=== PATIENT | female | born 1965 | race Caucasian/White ===

== ENCOUNTER 2016-10-05 02:20 | Emergency (ER) | payer BC ==
--- NOTE | 2016-10-05 04:14 | ER Document Report ---
[id number] Patient TRAVEL OUTSIDE OF THE [place] IN LAST 30 DAYS: No - HPI Patient complains to provider of: Pain Location: 4th Toe Associated symptoms: Other - See above - General Chief Complaint: Toe Injury Stated Complaint: TOE INJURY Notes: Patient is a 51 year old female who presents to the emergency department complaining of left 4th toe pain. Patient reports that she had stubbed the toe on her cement stair while running into her house 3 weeks ago. Patient states that she has taped the toe to the adjacent toes for support but it has not improved. Patient has not visited her PCP. PCP: Dr. Biswas (HILARIO MAHAJAN) - Related Data Allergies/Adverse Reactions: strawberry [[place]] Allergy (Severe, Verified 05/14/14 10:10) Anaphylaxis Past Medical History - General Information source: Patient - Social History Smoking Status: Unknown if Ever Smoked Family History: Reviewed & Not Pertinent Patient has suicidal ideation: No Patient has homicidal ideation: No - Past Medical History Cardiac Medical History: Reports: Hx Atrial Fibrillation, Hx Hypercholesterolemia Pulmonary Medical History: Reports: Hx Bronchitis - Chronic, Hx COPD Psychiatric Medical History: Reports: Hx Depression Past Surgical History: Reports: Hx Appendectomy, Hx Section, Hx Hysterectomy, Hx Orthopedic Surgery - left wrist - Immunizations Hx Diphtheria, Pertussis, Tetanus Vaccination: Yes - ukn Hx Pneumococcal Vaccination: 01/01/07 Review of Systems - Review of Systems Constitutional: No symptoms reported EENT: No symptoms reported Cardiovascular: No symptoms reported Respiratory: No symptoms reported Gastrointestinal: No symptoms reported Genitourinary: No symptoms reported Female Genitourinary: No symptoms reported Musculoskeletal: See HPI, Other - Left 4th toe pain Skin: No symptoms reported Hematologic/Lymphatic: No symptoms reported Neurological/Psychological: No symptoms reported -: Yes All other systems reviewed and negative Physical Exam - Vital signs Interpretation: Normal - General General appearance: Appears well, Alert - HEENT Head: Normocephalic, Atraumatic - Respiratory Respiratory status: No respiratory distress Chest status: Nontender Breath sounds: Normal Chest palpation: Normal - Cardiovascular Rhythm: Regular Heart sounds: Normal auscultation Murmur: No - Back Back: Normal, Nontender - Extremities General upper extremity: Normal inspection General lower extremity: Other - Mild swelling of left 4th toe with resolving ecchymosis at joint line. No swelling of left foot, ankle, or knee. Good pulses and good perfusion. No neuro deficits. - Neurological Neuro grossly intact: Yes Cognition: Normal Orientation: AAOx4 Berry Coma Scale Eye Opening: Spontaneous Aury Coma Scale Verbal: Oriented Aury Coma Scale Motor: Obeys Commands Aury Coma Scale Total: 15 Speech: Normal - Psychological Associated symptoms: Normal affect, Normal mood - Skin Skin Temperature: Warm Skin Moisture: Dry Skin Color: Normal Course - Re-evaluation Re-evalutation: 10/05/16 04:16 I personally performed the services described in the documentation, reviewed and edited the documentation which was dictated to my scribe in my presence, and it accurately records my words and actions. Patient presents emergency per with 3 weeks ago she was wearing her flip-flops and inverted repellents minute. She's been walking on it ever since that still painful didn't follow up with her primary care physician denies any other injuries. On examination the fourth toe is mildly swollen with mild bruising no open lesions full range of motion without tenderness. No pain tenderness swelling at the foot and ankle or proximal leg. Regular ahead and place her in a postop shoe. Tylenol Motrin for pain oblique fracture of the phalanx of the fourth toe. Follow-up primary care physician in 3-4 days and discussed reasons for ED return sooner (AUDRA JAMES) - Vital Signs Vital signs: Temp Pulse Resp BP Pulse Ox 98.0 F 95 18 136/88 H 99 10/05/16 04:31 10/05/16 04:31 10/05/16 04:31 10/05/16 04:31 10/05/16 04:31 Discharge - Discharge Clinical Impression: closed oblique fracture of proximal 4th Condition: Stable Disposition: HOME, SELF-CARE Additional Instructions: Fracture toe You have a fracture. The typical broken bone requires only protection and sufficient time for healing. "Setting" is necessary only if the bones are crooked or out of position. The physician will re-assess you periodically to make certain that the bone heals without complications. It's important that you follow the instructions given you. The initial treatment is immobilization, elevation of the injury, and cold packs. Not all fractures require a cast. Depending on the location and type of fracture, immobilization may consist of a splint, cast, sling, bulky dressing , or simply rest. The length of time required for healing depends on the location and type of fracture, and on the age of the patient. The treatment plan the physician has outlined for you is customized to your fracture and health condition. Call the doctor or return at once if pain becomes severe, or if severe swelling or numbness develop. Referrals: KEENAN BISWAS MD [Primary Care Provider] - Follow up in 3-5 days Scribe Documentation - Patric acting as scribe for :Amari James Written by Patric:: patric Sawyer, 10/05/16, [id number]
[2016-10-05 04:32] VITALS: BP 136/88
== END 2016-10-05 04:34 | disposition home or self-care (01) ==
LOC: ER 02:20
DX: S92.912A Unspecified fracture of left toe(s), initial encounter for closed fracture (principal); W22.8XXA Striking against or struck by other objects, initial encounter; I48.91 Unspecified atrial fibrillation; E78.00 Pure hypercholesterolemia, unspecified
CPT/HCPCS: 99283

== ENCOUNTER 2016-11-17 03:07 | Emergency (ER) | payer BC ==
[2016-11-17] MEDS ORDERED: PREDNISONE 20 MG TABLET PO ONE (04:53)
[2016-11-17] MEDS ORDERED: HYDROCODONE/ACETAMINOPHEN 5-325 MG TABLET PO ONE (04:53)
[2016-11-17] MEDS ORDERED: IPRATROPIUM/ALBUTEROL 0.5-2.5 MG/3 ML AMPUL NEB ONE (04:53)
--- NOTE | 2016-11-17 04:57 | ER Document Report ---
ED General - General Chief Complaint: Cough Stated Complaint: COUGH,HEADACHE Notes: Patient is a 51-year-old female that comes emergency department with chief complaint of cough, wheezing, sore throat, patient states symptoms started about 3 days ago. She denies fever. She states she has some congestion and is worn out. Patient has past medical history of tobacco abuse, COPD, has home inhalers, denies any other medical history. TRAVEL OUTSIDE OF THE [place] IN LAST 30 DAYS: No - Related Data Allergies/Adverse Reactions: strawberry [[place]] Allergy (Severe, Verified 05/14/14 10:10) Anaphylaxis Past Medical History - General Information source: Patient - Social History Smoking Status: Never Smoker Frequency of alcohol use: None Drug Abuse: None Lives with: Family Family History: Reviewed & Not Pertinent Patient has suicidal ideation: No Patient has homicidal ideation: No - Past Medical History Cardiac Medical History: Reports: Hx Atrial Fibrillation, Hx Hypercholesterolemia Pulmonary Medical History: Reports: Hx Bronchitis - Chronic, Hx COPD Renal/ Medical History: Denies: Hx Peritoneal Dialysis Psychiatric Medical History: Reports: Hx Depression Past Surgical History: Reports: Hx Appendectomy, Hx Section, Hx Hysterectomy, Hx Oral Surgery - tonsil, Hx Orthopedic Surgery - buzz carpal, lt fa xochilt, rt knee meniscus, rt elbow pinched nerve release - Immunizations Hx Diphtheria, Pertussis, Tetanus Vaccination: Yes - ukn Hx Pneumococcal Vaccination: 01/01/07 Review of Systems - Review of Systems Constitutional: No symptoms reported EENT: See HPI Cardiovascular: No symptoms reported Respiratory: See HPI Gastrointestinal: No symptoms reported Genitourinary: No symptoms reported Female Genitourinary: No symptoms reported Musculoskeletal: No symptoms reported Skin: No symptoms reported Hematologic/Lymphatic: No symptoms reported Neurological/Psychological: No symptoms reported Physical Exam - Vital signs Vitals: Temp Pulse Resp Pulse Ox 97.9 F 95 20 97 11/17/16 03:12 11/17/16 03:12 11/17/16 03:12 11/17/16 03:12 Interpretation: Normal - General General appearance: Alert, Anxious In distress: None - HEENT Head: Normocephalic, Atraumatic Eyes: Normal Conjunctiva: Normal Extraocular movements intact: Yes Eyelashes: Normal Pupils: PERRL Sinus: Maxillary - Tenderness bilaterally, mild Nasal: Other - Some nasal and sinus congestion Mouth/Lips: Normal Mucous membranes: Normal Pharynx: Erythema - Mildly erythematous pharynx. No: Tonsillar hypertrophy, Uvular edema, Potential airway comprom. Neck: Anterior cervical chain - Mild - Respiratory Respiratory status: No respiratory distress. No: Respiratory distress, Labored , Tachypnea Chest status: Nontender Breath sounds: Decreased air movement, Nonproductive cough - Occasional, Wheezing - Bilateral expiratory wheezes Chest palpation: Normal - Cardiovascular Rhythm: Regular. No: Tachycardia Heart sounds: Normal auscultation, S1 appreciated, S2 appreciated Murmur: No - Abdominal Inspection: Normal Distension: No distension Bowel sounds: Normal Tenderness: Nontender Organomegaly: No organomegaly - Back Back: Normal, Nontender - Extremities General upper extremity: Normal inspection, Nontender, Normal color, Normal ROM , Normal temperature General lower extremity: Normal inspection, Nontender, Normal color, Normal ROM , Normal temperature, Normal weight bearing. No: Chandrika's sign - Neurological Neuro grossly intact: Yes Cognition: Normal Orientation: AAOx4 Aury Coma Scale Eye Opening: Spontaneous [place] Coma Scale Verbal: Oriented Aury Coma Scale Motor: Obeys Commands [place] Coma Scale Total: 15 Speech: Normal Motor strength normal: LUE, RUE, LLE, RLE Sensory: Normal - Psychological Associated symptoms: Anxious - Skin Skin Temperature: Warm Skin Moisture: Dry Skin Color: Normal Course - Re-evaluation Re-evalutation: Patient had resolution of wheezing after DuoNeb treatment, patient given prednisone, symptomatic treatment, chest x-ray unremarkable, strep is negative, patient is much better appearing and smiling on examination on reexamination. Because of sinus tenderness patient will be covered with antibiotics which also cover her for pneumonia/bronchitis, will treat with prednisone, patient given refill on her albuterol nebulizer, discussed primary care follow-up, discussed return precautions, patient states understanding and agreement. - Vital Signs Vital signs: Temp Pulse Resp BP Pulse Ox 97.9 F 95 20 143/83 H 97 11/17/16 03:12 11/17/16 03:12 11/17/16 03:12 11/17/16 03:15 11/17/16 03:12 Discharge - Discharge Clinical Impression: Wheezing, Cough, Sinus pain Condition: Stable Disposition: HOME, SELF-CARE Additional Instructions: X-ray does not show any concerning antibiotics, strep test is negative. Take azithromycin antibiotic as directed for your sinuses and upper respiratory infection, take prednisone as directed, use albuterol, take Clinton if needed for pain and cough. Follow-up with primary care. Return to the emergency department for any concerning or worsening symptoms. Prescriptions: Albuterol Sulfate [Albuterol Sulfate 2.5mg/3 mL] 1 vial IH Q4 PRN #30 vial PRN Reason: Azithromycin [Zithromax 250 mg Tablet] 250 mg PO ASDIR PRN #6 tablet PRN Reason: Hydrocodone/Acetaminophen [[place] 5-325 mg Tablet] 1 - 2 tab PO ASDIR #15 tablet Prednisone 20 mg PO DAILY #15 tablet Forms: Return to Work Referrals: KEENAN BISWAS MD [Primary Care Provider] - Follow up as needed
[2016-11-17] MEDS ORDERED: HYDROCODONE/ACETAMINOPHEN 5-325 MG 6 TAB/DSPK PO PRN (05:53)
[2016-11-17 06:16] VITALS: BP 163/84
== END 2016-11-17 06:17 | disposition home or self-care (01) ==
LOC: ER 03:07
DX: J44.9 Chronic obstructive pulmonary disease, unspecified (principal); R05 Cough; J34.89 Other specified disorders of nose and nasal sinuses; J02.9 Acute pharyngitis, unspecified; R09.81 Nasal congestion; F41.9 Anxiety disorder, unspecified; Z87.892 Personal history of anaphylaxis; Z91.013 Allergy to seafood
CPT/HCPCS: 94640; 99283; 87070; 87880; 71020; J7512; J7620

== ENCOUNTER 2016-11-20 13:19 | Emergency (ER) | payer BC ==
--- NOTE | 2016-11-20 13:32 | ER Document Report ---
ED Medical Screen (RME) - General Stated Complaint: CONGESTION/COUGH Mode of Arrival: Ambulatory Information source: Patient Notes: Patient complains of voice hoarseness, chest congestion and cough for the past week. Patient was prescribed steroids and Z-Terrance and is almost finished with the medication. hx: COPD, rapid heart rate I have greeted and performed a rapid initial assessment of this patient. A comprehensive ED assessment and evaluation of the patient, analysis of test results and completion of the medical decision making process will be conducted by additional ED providers. TRAVEL OUTSIDE OF THE [place] IN LAST 30 DAYS: No - Related Data Allergies/Adverse Reactions: strawberry [[place]] Allergy (Severe, Verified 11/20/16 13:30) Anaphylaxis Past Medical History - Past Medical History Cardiac Medical History: Reports: Hx Atrial Fibrillation, Hx Hypercholesterolemia Pulmonary Medical History: Reports: Hx Bronchitis - Chronic, Hx COPD Renal/ Medical History: Denies: Hx Peritoneal Dialysis Psychiatric Medical History: Reports: Hx Depression Past Surgical History: Reports: Hx Appendectomy, Hx Section, Hx Hysterectomy, Hx Oral Surgery - tonsil, Hx Orthopedic Surgery - buzz carpal, lt fa xochilt, rt knee meniscus, rt elbow pinched nerve release - Immunizations Hx Diphtheria, Pertussis, Tetanus Vaccination: Yes - ukn Physical Exam - Respiratory Respiratory status: No respiratory distress Breath sounds: Nonproductive cough, Rhonchi, Wheezing
[2016-11-20 15:08] VITALS: BP 169/93
--- NOTE | 2016-11-20 15:38 | ER Document Report ---
ED Respiratory Problem - General Chief Complaint: Congestion Stated Complaint: CONGESTION/COUGH Mode of Arrival: Ambulatory Notes: Patient says that she "want my voice back". Patient is describing a hoarse voice starting today. She was seen here just 3 days ago for an upper respiratory infection along with coughing as well as some bronchospasm. She was treated with a Z-Terrance, prednisone pills, Percocet tablets, and nebulizer medications. She says she only has one day of medicines left and everything will be finished and she still has her cough and is still wheezing and now she' s developed hoarseness. In spite of all that, patient still is not stop smoking! TRAVEL OUTSIDE OF THE [place] IN LAST 30 DAYS: No - Related Data Allergies/Adverse Reactions: strawberry [[place]] Allergy (Severe, Verified 11/20/16 13:30) Anaphylaxis Past Medical History - General Information source: Patient - Social History Smoking Status: Current Every Day Smoker Cigarette use (# per day): Yes Chew tobacco use (# tins/day): No Frequency of alcohol use: None Drug Abuse: None Family History: Reviewed & Not Pertinent Patient has suicidal ideation: No Patient has homicidal ideation: No - Past Medical History Cardiac Medical History: Reports: Hx Atrial Fibrillation, Hx Hypercholesterolemia Pulmonary Medical History: Reports: Hx Bronchitis - Chronic, Hx COPD Psychiatric Medical History: Reports: Hx Depression Past Surgical History: Reports: Hx Appendectomy, Hx Section, Hx Hysterectomy, Hx Oral Surgery - tonsil, Hx Orthopedic Surgery - buzz carpal, lt fa xochilt, rt knee meniscus, rt elbow pinched nerve release - Immunizations Hx Diphtheria, Pertussis, Tetanus Vaccination: Yes - ukn Hx Pneumococcal Vaccination: 01/01/07 Review of Systems - Review of Systems Notes: REVIEW OF SYSTEMS: CONSTITUTIONAL : Denies fever. EENT: Denies eye, ear, nose or mouth pain or other symptoms except for hoarseness of her voice. CARDIOVASCULAR: Denies chest pain. RESPIRATORY: See history of present illness. GASTROINTESTINAL: Denies abdominal pain or nausea, vomiting, or diarrhea. GENITOURINARY: Denies difficulty or painful urinating, urinary frequency, blood in urine. MUSCULOSKELETAL: Denies back or neck pain. Denies joint pain or swelling. SKIN: Denies rash or skin lesions. NEUROLOGICAL: Denies LOC or altered mental status. Denies headache. Denies sensory loss or motor deficits. ALL OTHER SYSTEMS REVIEWED AND NEGATIVE. Physical Exam - Vital signs Vitals: Temp Pulse Resp BP Pulse Ox 98.0 F 114 H 17 169/93 H 96 11/20/16 13:32 11/20/16 13:32 11/20/16 13:32 11/20/16 13:32 11/20/16 13:32 Interpretation: Normal, Tachycardic - Minimal - Notes Notes: PHYSICAL EXAMINATION: GENERAL: Well-appearing, in no acute distress. Anxious. All vital signs normal. HEAD: Atraumatic, normocephalic. EYES: Pupils equal round and reactive to light, extraocular movements intact. ENT: oropharynx clear except for some mild, inconsequential erythema of the posterior oropharynx, but without exudates. Moist mucous membranes. Voice is slightly hoarse sounding. NECK: Normal range of motion, supple. LUNGS: Breath sounds clear and equal bilaterally. HEART: Regular rate and rhythm without murmurs. ABDOMEN: Soft, nontender. No guarding or rebound. BACK: No tenderness throughout entire back. EXTREMITIES: Normal range of motion without pain. NEUROLOGICAL: Normal speech, normal gait. Normal sensory, motor, and reflex exams. Awake, alert, and oriented x3. Cranial nerves normal. PSYCH: Normal mood, normal affect. SKIN: Warm, dry, no rashes. Course - Vital Signs Vital signs: Temp Pulse Resp BP Pulse Ox 98.0 F 114 H 17 169/93 H 96 11/20/16 13:32 11/20/16 13:32 11/20/16 13:32 11/20/16 13:32 11/20/16 13:32 - Diagnostic Test Radiology results interpreted by me: 11/20/16 20:46 Chest x-ray is normal. Discharge - Discharge Clinical Impression: Hoarseness of voice, Cough, Laryngitis Upper respiratory infection Qualifiers: URI type: unspecified URI Qualified Code(s): J06.9 - Acute upper respiratory infection, unspecified Condition: Stable Disposition: HOME, SELF-CARE Additional Instructions: UPPER RESPIRATORY ILLNESS: You have a viral infection of the respiratory passages -- a "cold." This common infection causes nasal congestion, drainage, and often sore throat and cough. It is highly contagious. The disease usually lasts about 10 to 14 days. There is no "cure" for the viral infection -- it must run its course. If there is a complication, such as bacterial infection in the nose, sinuses, middle ear, or bronchial tubes, antibiotics may be required. The antibiotics won't affect the virus. Drink plenty of fluids. A humidifier may help. An expectorant medication or decongestant may make you more comfortable. Use acetaminophen or ibuprofen for fever or aches. See the doctor if fever persists over two days, if there is any significant worsening of your symptoms, or if you simply fail to improve as expected. BRONCHOSPASM: You have tightness in the bronchial tubes, called bronchospasm. This often occurs with bronchial infections. Allergies, inhaled chemicals, and polluted or cold air can also provoke bronchospasm. It's more likely in patients with asthma in the family. Emergency treatment of bronchospasm may include adrenaline shots or bronchodilator aerosol. You may feel lightheaded and have a rapid pulse for an hour or two. Rest and get plenty of fluids. At home, we'll treat you with a bronchodilator inhaler. Antibiotics and corticosteroids may be required for some patients. Until you recover, avoid chemical fumes, dusts, pollens, and exercising in very cold or dry air. If you smoke, stop now!! If you develop a fever, increased wheezing, chest pain, or severe shortness of breath, you should contact the doctor immediately. COUGH-SUPPRESSANT & EXPECTORANT MEDICATION: You are to use a cough medication as needed for relief of symptoms. This medicine is a combination of an expectorant (to make the mucous thinner and more easily "coughed up") and a cough suppressant (to reduce the frequency of coughing). The cough-suppressant medicine is related to narcotics. You may experience mild nausea and sleepiness. Some patients who are very sensitive to narcotics may have stomach pain from this medicine. Taking the medicine with food reduces these side effects. Do not drive or work with machinery until you know how this medicine affects you. The expectorant should have no side effects. Iodine-containing expectorants (such as organidin) should not be taken by persons with active thyroid disease unless approved by your doctor. Call the doctor if you develop shortness of breath, hives, rash, itching, lightheadedness, or severe nausea and vomiting. Oral Narcotic Medication You have been given a prescription for pain control. This medication is a narcotic. It's best taken with food, as nausea can result if taken on an empty stomach. Don't operate machinery or drive within six hours of taking this medication. Do not combine this medicine with alcohol, or with any medication which can cause sedation (such as cold tablets or sleeping pills) unless you get permission from the physician. Narcotics tend to cause constipation. If possible, drink plenty of fluids and eat a diet high in fiber and fruits. INHALED BRONCHODILATORS: You have received a treatment of and/or prescription for an inhaled bronchodilator -- a medication which stimulates the airways in the lung to dilate. This improves the flow of air in asthma, bronchitis, and emphysema. These medicines have some similarity to adrenaline, and can cause similar side effects: shakiness, racing heart, and a sense of nervousness. These side effects decrease with time. Contact your doctor if these side effects are severe. Do not over-use the medicine. Too-frequent use of the inhaler may make it ineffective. Call your doctor if the inhaler is not controlling your symptoms at the prescribed doses. STEROID MEDICATION: You have been given an injection of or oral medicine of the cortisone/ steroid class. This medication is used to control inflammation or allergy. Andrea t is usually only given for a short period of time, until the acute process subsides. There are usually no side effects from short-term use of cortisone-like medications. Some persons feel an increased sense of well-being and are not sleepy at bedtime. Long-term use of cortisone medications is best avoided, unless required for a severe condition. If your condition does not remit, or relapses after the course of corticosteroid medication, you should consult your physician. Laryngitis You have laryngitis. This is an inflammation of the vocal cords which leads to inability to speak normally. Any irritation to the airway can cause laryngitis. Causes include virus infection, smoke inhalation, allergy, or even trauma due to excessive talking or shouting. Rest your voice. Any vibration of the vocal cords increases and prolongs the swelling. Humidity is helpful, especially cool mist. Avoid dust, chemical fumes, and smoke. Avoid decongestants and antihistamines -- these will make you worse. You can expect to recover completely in a few days. See the physician if new symptoms develop, such as high fever, productive cough, shortness of breath, or if you do not improve within a few days. SMOKING: If you smoke, you should stop smoking. The tar and chemicals in cigarette smoke are harmful. Smoking has been shown to cause: emphysema chronic bronchitis lung cancer mouth and throat cancer stomach and pancreas cancer premature aging defects In addition, smoking increases ear and lung infections in children of smokers. It would probably be very helpful if you get a steam vaporizer and put it in your bedroom and let it run continuously over the next week or so. Decrease or stop smoking. Continue your medications until they're finished. They do not need to be refilled for further treatment. FOLLOW-UP CARE: If you have been referred to a physician for follow-up care, call the physician s office for an appointment as you were instructed or within the next two days. If you experience worsening or a significant change in your symptoms, notify the physician immediately or return to the Emergency Department at any time for re-evaluation. Prescriptions: Oxycodone HCl/Acetaminophen [Percocet 5-325 mg Tablet] 1 - 2 tab PO Q4H PRN #15 tablet PRN Reason: Forms: Return to Work, Smoking Cessation Education
== END 2016-11-20 15:50 | disposition home or self-care (01) ==
LOC: ER 13:19
DX: J04.0 Acute laryngitis (principal); J06.9 Acute upper respiratory infection, unspecified; R49.0 Dysphonia; R05 Cough; R09.81 Nasal congestion; F17.210 Nicotine dependence, cigarettes, uncomplicated; Z79.899 Other long term (current) drug therapy
CPT/HCPCS: 71020; 99283

== ENCOUNTER 2017-01-19 17:49 | Emergency (ER) | payer BC ==
[2017-01-19 18:16] VITALS: BP 137/81
[2017-01-19] MEDS ORDERED: OXYCODONE-ACETAMINOPHEN 5-325 MG TABLET PO ONE (20:10)
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
[2017-01-19] MEDS ORDERED: HYDROCODONE/ACETAMINOPHEN 5-325 MG 6 TAB/DSPK PO PRN (20:32)
== END 2017-01-19 20:44 | disposition home or self-care (01) ==
LOC: ER 17:49
DX: S92.511A Displaced fracture of proximal phalanx of right lesser toe(s), initial encounter for closed fracture (principal); M79.671 Pain in right foot; W20.8XXA Other cause of strike by thrown, projected or falling object, initial encounter; Y92.512 Supermarket, store or market as the place of occurrence of the external cause; F17.210 Nicotine dependence, cigarettes, uncomplicated; J44.9 Chronic obstructive pulmonary disease, unspecified; R03.0 Elevated blood-pressure reading, without diagnosis of hypertension
CPT/HCPCS: 99283

== ENCOUNTER 2017-06-12 12:15 | Emergency (ER) | payer SELFPAY ==
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
--- NOTE | 2017-06-12 14:15 | RADIOLOGY REPORT (SQ) ---
EXAM DESCRIPTION: FINGER LEFT COMPLETED DATE/TIME: 06/12/2017 1:54 pm REASON FOR STUDY: 5th finger injury COMPARISON: None. NUMBER OF VIEWS: Three views. TECHNIQUE: AP, lateral, and oblique images acquired of the left fifth finger. LIMITATIONS: None. FINDINGS: MINERALIZATION: Osteopenia. BONES: There is a fracture of the distal aspect of the 5th middle phalanx that extends obliquely to t he midportion of the articular surface. There is no significant displacement. SOFT TISSUES: No soft tissue swelling. No foreign body. OTHER: No other significant finding. IMPRESSION: Fracture of the 5th middle phalanx. COMMENT: SITE OF TRAUMA/COMPLAINT MARKED/STAMP COMPLETED: Yes TECHNICAL DOCUMENTATION: JOB ID: [id number] [employer]- All Rights Reserved
--- NOTE | 2017-06-12 14:17 | RADIOLOGY REPORT (SQ) ---
EXAM DESCRIPTION: TOE RIGHT COMPLETED DATE/TIME: 06/12/2017 1:54 pm REASON FOR STUDY: 5th toe injury COMPARISON: None. NUMBER OF VIEWS: Three views. TECHNIQUE: AP, lateral, and oblique images acquired of the right fourth toe. LIMITATIONS: None. FINDINGS: MINERALIZATION: Osteopenia BONES: No acute fracture or dislocation. No worrisome bone lesions. JOINTS: No effusions. SOFT TISSUES: No soft tissue swelling. No foreign body. OTHER: No other significant finding. IMPRESSION: NEGATIVE STUDY OF THE RIGHT TOE. NO RADIOGRAPHIC EVIDENCE OF ACUTE INJURY. COMMENT: SITE OF TRAUMA/COMPLAINT MARKED/STAMP COMPLETED: Yes TECHNICAL DOCUMENTATION: JOB ID: [id number] [employer]- All Rights Reserved
[2017-06-12] MEDS ORDERED: IBUPROFEN 800 MG TABLET PO ONE (14:27)
[2017-06-12 14:54] VITALS: BP 140/70
== END 2017-06-12 14:55 | disposition home or self-care (01) ==
LOC: ER 12:15
DX: S62.607A Fracture of unspecified phalanx of left little finger, initial encounter for closed fracture (principal); S90.121A Contusion of right lesser toe(s) without damage to nail, initial encounter; F17.210 Nicotine dependence, cigarettes, uncomplicated; Y09 Assault by unspecified means
CPT/HCPCS: 99283

== ENCOUNTER 2017-11-16 10:33 | Emergency (ER) | payer OTHER ==
--- NOTE | 2017-11-16 11:40 | ER Document Report ---
HPI - HPI Pain Level: 3 Notes: Patient is a 52-year-old female who presents to the ED complaining of nasal congestion/discharge, dry nonproductive cough, fever, body ache 2 days. Patient states that she is still eating and drinking without difficulties, but does have a decreased p.o. intake. She is still urinating normally having normal bowel movements. Patient has been using some [id number] meds for symptoms. Pt does have a h/o COPD, stable w/o need for daily inhaler currently. She denies any other significant past medical history including cardiopulmonary history and immunocompromised conditions. Patient denies any IV drug use. Patient requesting work note. Denies any current headache, neck pain, sore throat, chest pain, palpitations, syncope, shortness of breath, wheeze, dyspnea, abdominal pain, nausea/vomiting/diarrhea, urinary retention, dysuria, hematuria, or rash. Pt does not have any flank pain as noted in pivot. Pt states it is a body ache. - ROS Systems Reviewed and Negative: Yes All other systems reviewed and negative - REPRODUCTIVE Reproductive: DENIES: : Past Medical History - Social History Smoking Status: Unknown if Ever Smoked Family History: DM, Hyperlipidemia, Malignancy - Past Medical History Cardiac Medical History: Reports: Hx Atrial Fibrillation, Hx Hypercholesterolemia Pulmonary Medical History: Reports: Hx Bronchitis - Chronic, Hx COPD Renal/ Medical History: Denies: Hx Peritoneal Dialysis Musculoskeltal Medical History: Reports Hx Arthritis, Reports Hx Musculoskeletal Deformity, Reports Hx Musculoskeletal Trauma Psychiatric Medical History: Reports: Hx Depression Traumatic Medical History: Reports: Hx Fractures - Toe elbow ribs clavicle ulnar radius ankle nose and hand Past Surgical History: Reports: Hx Appendectomy, Hx Section, Hx Hysterectomy, Hx Oral Surgery - tonsil, Hx Orthopedic Surgery - buzz carpal, lt fa xochilt, rt knee meniscus, rt elbow pinched nerve release, Hx Tonsillectomy - Immunizations Immunizations up to date: Yes Hx Diphtheria, Pertussis, Tetanus Vaccination: Yes - ukn Hx Pneumococcal Vaccination: 01/01/07 Vertical Provider Document - CONSTITUTIONAL Agree With Documented VS: Yes Notes: PHYSICAL EXAMINATION: GENERAL: Well-appearing, well-nourished and in no acute distress. A&Ox4. Answers questions appropriately. Moves comfortably w/o notable distress HEAD: Atraumatic, normocephalic. EYES: Pupils equal round and reactive to light, extraocular movements intact, sclera anicteric, conjunctiva are normal. ENT: EAC clear b/l. TM's intact b/l without erythema, fluid, or perforation. Nares patent and with clear discharge. oropharynx no erythema without exudates. No tonsilar hypertrophy without erythema or exudate. No palatine shift. Uvula midline. No tongue protrusion. No drooling, hoarseness, or airway compromise. Moist mucous membranes. No sinus tenderness. NECK: Normal range of motion, supple without lymphadenopathy. No rigidity/ meningismus. LUNGS: Breath sounds clear to auscultation bilaterally and equal. No wheezes rales or rhonchi. No retractions HEART: Regular rate and rhythm without murmurs, rubs, gallops. ABDOMEN: Soft, nontender, nondistended abdomen. No guarding, no rebound. No masses appreciated. Normal bowel sounds present. No CVA tenderness bilaterally. No hepatosplenomegaly. NEUROLOGICAL: Normal speech, normal gait. Normal sensory, motor exams PSYCH: Normal mood, normal affect. SKIN: Warm, Dry, normal turgor, no rashes or lesions noted. - INFECTION CONTROL TRAVEL OUTSIDE OF THE [place] IN LAST 30 DAYS: No - RESPIRATORY O2 Sat by Pulse Oximetry: 96 Course - Re-evaluation Re-evalutation: 11/16/17 11:38 Patient is an afebrile, well-hydrated, 52-year-old female who presents to the ED with acute URI, suspect influenza. Vitals are stable. PE is otherwise unremarkable. No labs or imaging warranted at this time based on H&P. Pt does have a h/o COPD. Patient's lungs are clear to auscultation bilaterally without significant tachycardia, hypoxia, or tachypnea. Patient is tolerating p.o. without any difficulties. Thoroughly reviewed the risks, benefits, potential side effects, estimated cost without insurance with patient. After thorough review, patient declined Tamiflu at this time. Low suspicion for any meningitis , sepsis, peritonsillar/pharyngeal abscess, respiratory compromise, severe dehydration, or other emergent systemic condition at this time. Patient is aware this condition can change from initial presentation and she needs to monitor symptoms closely. Conservative measures otherwise for symptoms. Recheck with your PCM in 3-5 days. Return to the ED with any worsening/ concerning symptoms otherwise as reviewed in discharge. Patient is in agreement. - Vital Signs Vital signs: Temp Pulse Resp BP Pulse Ox 98.1 F 101 H 16 148/85 H 96 11/16/17 10:56 11/16/17 10:56 11/16/17 10:56 11/16/17 10:56 11/16/17 10:56 Discharge - Discharge Clinical Impression: Influenza, Acute URI Condition: Stable Disposition: HOME, SELF-CARE Instructions: Upper Respiratory Illness ([facility]), Influenza ([facility]) Additional Instructions: Maintain adequate fluid intake Take meds as directed tylenol/ibuprofen as needed over the counter cold medication as needed for symptoms Humidified air may help Wash your hands regularly Wear a mask when coughing F/u: with your PCM in 3-5 days for a recheck Return to the ED with any fever, worsening pain, chest pain, palpitations, syncope, worsening DIAS, neck pain/stiffness, shortness of breath, wheezing, drooling, trouble swallowing/breathing, abdominal pain, n/v/d, rash, or worsening/concerning symptoms otherwise. Forms: Elevated Blood Pressure Referrals: [facility] [Provider Group] - Follow up as needed [facility] [Provider Group] - Follow up as needed
[2017-11-16 12:15] VITALS: BP 147/86
== END 2017-11-16 12:14 | disposition home or self-care (01) ==
LOC: ER 10:33
DX: J11.1 Influenza due to unidentified influenza virus with other respiratory manifestations (principal); R05 Cough; R50.9 Fever, unspecified; R52 Pain, unspecified; J44.9 Chronic obstructive pulmonary disease, unspecified; J34.89 Other specified disorders of nose and nasal sinuses
CPT/HCPCS: 99284

== ENCOUNTER 2018-03-11 16:44 | Emergency (ER) | payer OTHER ==
--- NOTE | 2018-03-11 17:05 | ER Document Report ---
HPI - HPI Pain Level: 4 - REPRODUCTIVE Reproductive: DENIES: : Past Medical History - Social History Family History: DM, Hyperlipidemia, Malignancy - Past Medical History Cardiac Medical History: Reports: Hx Atrial Fibrillation, Hx Hypercholesterolemia Pulmonary Medical History: Reports: Hx Bronchitis - Chronic, Hx COPD Renal/ Medical History: Denies: Hx Peritoneal Dialysis Musculoskeltal Medical History: Reports Hx Arthritis, Reports Hx Musculoskeletal Deformity, Reports Hx Musculoskeletal Trauma Psychiatric Medical History: Reports: Hx Depression Traumatic Medical History: Reports: Hx Fractures - Toe elbow ribs clavicle ulnar radius ankle nose and hand Past Surgical History: Reports: Hx Appendectomy, Hx Section, Hx Hysterectomy, Hx Oral Surgery - tonsil, Hx Orthopedic Surgery - buzz carpal, lt fa xochilt, rt knee meniscus, rt elbow pinched nerve release, Hx Tonsillectomy - Immunizations Immunizations up to date: Yes Hx Diphtheria, Pertussis, Tetanus Vaccination: Yes - ukn Hx Pneumococcal Vaccination: 01/01/07 Vertical Provider Document - INFECTION CONTROL TRAVEL OUTSIDE OF THE [place] IN LAST 30 DAYS: No Course - Vital Signs Vital signs: Temp Pulse Resp BP Pulse Ox 98.2 F 110 H 20 147/80 H 95 03/11/18 16:55 03/11/18 16:55 03/11/18 16:55 03/11/18 16:55 03/11/18 16:55
--- NOTE | 2018-03-11 17:28 | RADIOLOGY REPORT (SQ) ---
EXAM DESCRIPTION: KNEE LEFT 4 VIEW COMPLETED DATE/TIME: 03/11/2018 5:09 pm REASON FOR STUDY: Pain s/p fall COMPARISON: None. NUMBER OF VIEWS: Four views. TECHNIQUE: AP, lateral, and both oblique radiographic images acquired of the left knee. LIMITATIONS: None. FINDINGS: No acute fracture or bony abnormality identified. IMPRESSION: NORMAL LEFT KNEE. TECHNICAL DOCUMENTATION: JOB ID: [id number] [place]-69 2010 [employer]- All Rights Reserved Reading location - IP/workstation name: [email or web address]
[2018-03-11] MEDS ORDERED: ASPIRIN 81 MG TABLET, CHEWABLE PO ONE (17:32)
--- NOTE | 2018-03-11 17:50 | ER Document Report ---
ED Medical Screen (RME) - General Chief Complaint: Knee Injury Stated Complaint: LEFT KNEE PAIN Time Seen by Provider: 03/11/18 17:04 Mode of Arrival: Ambulatory Information source: Patient Notes: 52-year-old female was walking on the sidewalk to enter her daughter's graduation Monday and the next thing she remembers she was twisting her back. She does not remember falling. There was no pre-syncopal symptoms. She was dazed and had to get her bearings, she did not realize where she was. No history of seizures. The rest of Monday after this episode she felt very fatigued and tired which was unusual. She does state that she has had some intermittent chest pain recently but not during or after this episode. She is a tachycardic patient and supposed to take atenolol which she has not been taking for a month. 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 Her left knee is painful with an abrasion on it. Tetanus is not current. I discussed this case with Dr. Lopez who also agrees that she needs to be evaluated for the syncopal episode on Monday. She agrees to this workup. TRAVEL OUTSIDE OF THE [place] IN LAST 30 DAYS: No - Related Data Allergies/Adverse Reactions: strawberry [[place]] Allergy (Severe, Verified 06/12/17 12:23) Anaphylaxis Past Medical History - Past Medical History Cardiac Medical History: Reports: Hx Atrial Fibrillation, Hx Hypercholesterolemia Pulmonary Medical History: Reports: Hx Bronchitis - Chronic, Hx COPD Renal/ Medical History: Denies: Hx Peritoneal Dialysis Musculoskeltal Medical History: Reports Hx Arthritis, Reports Hx Musculoskeletal Deformity, Reports Hx Musculoskeletal Trauma Psychiatric Medical History: Reports: Hx Depression Traumatic Medical History: Reports: Hx Fractures - Toe elbow ribs clavicle ulnar radius ankle nose and hand Past Surgical History: Reports: Hx Appendectomy, Hx Section, Hx Hysterectomy, Hx Oral Surgery - tonsil, Hx Orthopedic Surgery - buzz carpal, lt fa xochilt, rt knee meniscus, rt elbow pinched nerve release, Hx Tonsillectomy - Immunizations Immunizations up to date: Yes Hx Diphtheria, Pertussis, Tetanus Vaccination: Yes - [facility] Physical Exam - Vital signs Vitals: Temp Pulse Resp BP Pulse Ox 98.2 F 110 H 20 147/80 H 95 03/11/18 16:55 03/11/18 16:55 03/11/18 16:55 03/11/18 16:55 03/11/18 16:55 Course - Vital Signs Vital signs: Temp Pulse Resp BP Pulse Ox 98.2 F 110 H 20 147/80 H 95 03/11/18 16:55 03/11/18 16:55 03/11/18 16:55 03/11/18 16:55 03/11/18 16:55
[2018-03-11] MEDS ORDERED: IBUPROFEN 400 MG TABLET PO ONE (17:52)
[2018-03-11] MEDS ORDERED: IBUPROFEN 600 MG TABLET PO ONE (17:52)
[2018-03-11 17:57] LABS: ABSOLUTE BASOPHILS # (AUTO) 0.1 10^3/uL (0.0-0.2); ABSOLUTE EOSINOPHILS # (AUTO) 0.1 10^3/uL (0.0-0.6); ABSOLUTE LYMPHOCYTES (AUTO) 2.2 10^3/uL (0.5-4.7); ABSOLUTE MONOCYTES (AUTO) 0.8 10^3/uL (0.1-1.4); ABSOLUTE NEUT (AUTO) 5.4 10^3/uL (1.7-8.2); EOSINOPHILS % (AUTO) 1.2 % (0-6); HEMATOCRIT 40.8 % (36.0-47.0); HEMOGLOBIN 14.1 g/dL (12.0-15.5); LYMPHOCYTES % (AUTO) 25.7 % (13-45); MEAN CORPUSCULAR HEMOGLOBIN 33.1 pg (27.0-33.4); MEAN CORPUSCULAR HGB CONC 34.6 g/dL (32.0-36.0); MEAN CORPUSCULAR VOLUME 96 fl (80-97); MONOCYTES % (AUTO) 8.9 % (3-13); PLATELET COUNT 289 10^3/uL (150-450); RED BLOOD COUNT 4.26 10^6/uL (3.72-5.28); RED CELL DISTRIBUTION WIDTH 13.7 % (11.5-14.0); SEGMENTED NEUTROPHILS % (AUTO) 63.2 % (42-78); TOTAL CELLS COUNTED % (AUTO) 100 %; WHITE BLOOD COUNT 8.5 10^3/uL (4.0-10.5)
[2018-03-11] MEDS ORDERED: DIPH/PERTUSS(ACELL)/TETANUS VAC/PF 0.5 ML SYR (>=10YO) IM ONE (17:59)
--- NOTE | 2018-03-11 18:13 | RADIOLOGY REPORT (SQ) ---
EXAM DESCRIPTION: CHEST SINGLE VIEW COMPLETED DATE/TIME: 03/11/2018 5:53 pm REASON FOR STUDY: episode of syncope on Monday COMPARISON: Chest x-ray 11/20/2016. EXAM PARAMETERS: NUMBER OF VIEWS: One view. TECHNIQUE: Single frontal radiographic view of the chest acquired. RADIATION DOSE: NA LIMITATIONS: None. FINDINGS: LUNGS AND PLEURA: No consolidation, pneumothorax or pleural effusion. MEDIASTINUM AND HILAR STRUCTURES: No masses. Contour normal. HEART AND VASCULAR STRUCTURES: Heart normal in size. Normal vasculature. BONES: No acute findings. HARDWARE: None in the chest. IMPRESSION: No acute radiographic finding in the chest. TECHNICAL DOCUMENTATION: JOB ID: [id number] [place]-64 2010 [employer]- All Rights Reserved Reading location - IP/workstation name: [email or web address]
[2018-03-11 18:15] LABS: ALANINE AMINOTRANSFERASE 23 U/L (9-52); ALBUMIN 4.1 g/dL (3.5-5.0); ALKALINE PHOSPHATASE 87 U/L (38-126); ANION GAP 12 (5-19); ASPARTATE AMINO TRANSFERASE 19 U/L (14-36); BILIRUBIN,DIRECT 0.3 mg/dL (0.0-0.4); BILIRUBIN,TOTAL 0.3 mg/dL (0.2-1.3); BLOOD UREA NITROGEN 14 mg/dL (7-20); CALCIUM 9.5 mg/dL (8.4-10.2); CARBON DIOXIDE 26 mmol/L (22-30); CHLORIDE 106 mmol/L (98-107); CREATINE KINASE 80 U/L (30-135); GLUCOSE 100 mg/dL (75-110); POTASSIUM 4.1 mmol/L (3.6-5.0)
[2018-03-11 18:34] LABS: TROPONIN I < 0.012 ng/mL
[2018-03-11] MEDS ORDERED: METOPROLOL TARTRATE 25 MG TABLET PO ONE (20:20)
[2018-03-11] MEDS ORDERED: ACETAMINOPHEN 325 MG TABLET PO ONE (20:20)
--- NOTE | 2018-03-11 20:26 | ER Document Report ---
ED General - General Chief Complaint: Knee Injury Stated Complaint: LEFT KNEE PAIN Time Seen by Provider: 03/11/18 17:04 Mode of Arrival: Ambulatory Notes: The patient is a 52-year-old female with a past medical history of sinus tachycardia although is currently off of her beta-lou who presents after having a syncopal episode 2 days prior to arrival falling and landing on her left knee. The patient states that she had some mild lightheadedness prior to the episode of syncope but the next thing she knew she was falling to the ground. She states that she initially felt okay after the fall with only mild pain to the left knee. He does note however that since that time the knee pain has become progressively worse and is now constant, severe, throbbing pain. Any movement of the knee or walking worsens the pain. She has tried ibuprofen with minimal improvement of the pain. No history of similar injury in the past. She states that she has not had any recurrence of syncope since the initial event 2 days ago. She denies any chest pain or shortness of breath. The only reason she came to the emergency department today was for the knee pain and she states that she is not concerned about the syncopal episode. She has not seen her primary care doctor regarding today's concerns. TRAVEL OUTSIDE OF THE [place] IN LAST 30 DAYS: No - Related Data Allergies/Adverse Reactions: strawberry [[place]] Allergy (Severe, Verified 06/12/17 12:23) Anaphylaxis Past Medical History - General Information source: Patient - Social History Smoking Status: Never Smoker Frequency of alcohol use: None Drug Abuse: None Lives with: Spouse/Significant other Family History: DM, Hyperlipidemia, Malignancy Patient has suicidal ideation: No Patient has homicidal ideation: No - Past Medical History Cardiac Medical History: Reports: Hx Atrial Fibrillation, Hx Hypercholesterolemia Pulmonary Medical History: Reports: Hx Bronchitis - Chronic, Hx COPD Renal/ Medical History: Denies: Hx Peritoneal Dialysis Musculoskeltal Medical History: Reports Hx Arthritis, Reports Hx Musculoskeletal Deformity, Reports Hx Musculoskeletal Trauma Psychiatric Medical History: Reports: Hx Depression Traumatic Medical History: Reports: Hx Fractures - Toe elbow ribs clavicle ulnar radius ankle nose and hand Past Surgical History: Reports: Hx Appendectomy, Hx Section, Hx Hysterectomy, Hx Oral Surgery - tonsil, Hx Orthopedic Surgery - buzz carpal, lt fa xochilt, rt knee meniscus, rt elbow pinched nerve release, Hx Tonsillectomy - Immunizations Immunizations up to date: Yes Hx Diphtheria, Pertussis, Tetanus Vaccination: Yes - ukn Hx Pneumococcal Vaccination: 01/01/07 Review of Systems - Review of Systems Notes: Constitutional: Negative for fever. HENT: Negative for sore throat. Eyes: Negative for visual changes. Cardiovascular: Negative for chest pain. Respiratory: Negative for shortness of breath. Gastrointestinal: Negative for abdominal pain, vomiting or diarrhea. Genitourinary: Negative for dysuria. Musculoskeletal: Positive for left knee pain Skin: Negative for rash. Neurological: Negative for headaches, weakness or numbness. 10 point ROS negative except as marked above and in HPI. Physical Exam - Vital signs Vitals: Temp Pulse Resp BP Pulse Ox 98.2 F 110 H 20 147/80 H 95 03/11/18 16:55 03/11/18 16:55 03/11/18 16:55 03/11/18 16:55 03/11/18 16:55 Interpretation: Tachycardic - Resolved at the time of my assessment Notes: PHYSICAL EXAMINATION: GENERAL: Well-appearing, well-nourished and in no acute distress. HEAD: Atraumatic, normocephalic. EYES: Pupils equal round and reactive to light, extraocular movements intact, sclera anicteric, conjunctiva are normal. ENT: nares patent, oropharynx clear without exudates. Moist mucous membranes. NECK: Normal range of motion, supple without lymphadenopathy LUNGS: Breath sounds clear to auscultation bilaterally and equal. No wheezes rales or rhonchi. HEART: Regular rate and rhythm without murmurs ABDOMEN: Soft, nontender, normoactive bowel sounds. No guarding, no rebound. No masses appreciated. EXTREMITIES: Normal range of motion, no pitting or edema. Pain on palpation of the left knee without any specific localization of the pain. Full flexion extension of the left knee is present both passively and actively. No cyanosis. NEUROLOGICAL: No focal neurological deficits. Moves all extremities spontaneously and on command. PSYCH: Normal mood, normal affect. SKIN: Warm, Dry, normal turgor, there is a 1 x 1 cm abrasion over the lateral aspect of the left patella Course - Re-evaluation Re-evalutation: 03/11/18 20:20 Presentation of syncope of unclear etiology although this was 48 hours prior to arrival and the patient has been asymptomatic since that time.. Patient normotensive, alert, without focal neurologic deficits at time of arrival. Denies syncope was during exertion. No preceding symptoms of palpitations, chest pain, or shortness of breath. Patient asymptomatic at time of arrival. EKG is without evidence of HCOM, right heart strain, ST changes to suggest ischemia, prolong QTc, delta wave, epsilon wave, or Brugada syndrome. Patient denies any family history of sudden cardiac , personal history of of structural heart disease. Patient denies any symptoms to suggest an acute PE, NE , TAD, SAH, seizure, or acute GI bleed as the etiology of their syncope today. On exam, no murmurs to suggest critical aortic stenosis as possible etiology. Patient did also sustain a soft tissue contusion to the left knee although is able to fully flex and extend the knee with some moderate discomfort. X-rays without any evidence of acute fractures or dislocations. Strong 2+ DP pulse bilaterally. No significant hematoma or evidence of compartment syndrome to the area. I have emphasized use of NSAIDs, ice and elevation. I have encouraged cardiology follow-up for her episode of syncope and have restarted her on the beta blockers that she had been taking previously but has since discontinued due to cost. At this time will discharge with return precautions and follow-up recommendations. Verbal discharge instructions given a the bedside and opportunity for questions given. Medication warnings reviewed. Patient is in agreement with this plan and has verbalized understanding of return precautions and the need for primary care follow-up in the next 24-72 hours. - Vital Signs Vital signs: Temp Pulse Resp BP Pulse Ox 97.8 F 89 17 148/86 H 98 03/11/18 20:30 03/11/18 20:30 03/11/18 20:30 03/11/18 20:30 03/11/18 20:30 - Laboratory Result Diagrams: 03/11/18 17:47 03/11/18 17:47 - Diagnostic Test Radiology reviewed: Image reviewed, Reports reviewed Radiology results interpreted by me: 03/11/18 20:21 Left knee x-ray: No acute fractures or dislocations Chest x-ray: No acute infiltrates - EKG Interpretation by Me Additional EKG results interpreted by me: 03/11/18 20:24 Sinus tachycardia. Rate 107. No ST elevations or depressions. QTC is 481. Discharge - Discharge Clinical Impression: Sinus tachycardia Syncope Qualifiers: Syncope type: unspecified Qualified Code(s): R55 - Syncope and collapse Left knee injury Qualifiers: Encounter type: initial encounter Qualified Code(s): S89.92XA - Unspecified injury of left lower leg, initial encounter Condition: Good Disposition: HOME, SELF-CARE Additional Instructions: You were seen today after an episode of passing out. Your EKG here is normal. At this time, we do not feel that your episode of passing out was from any life- threatening cause. Please drink plenty of fluids over the next several days. Return to emergency department if you have any further episodes of syncope, headache, weakness, numbness, chest pain, or shortness of breath. Please follow up closely with your primary care physician. Your x-ray does not show any acute fracture today. You likely have a ligamentous strain. You should continue to take anti-inflammatories such as ibuprofen 600 mg every 6 hours as well as acetaminophen 1000mg every 6 hours. Continue to apply ice to the area is much your able. Please follow-up with your primary care physician if you do not have improving your symptoms in the next 1-2 weeks. Please return immediately if you develop weakness, numbness, spreading redness from the area, or any other symptoms that are concerning to you. Prescriptions: Metoprolol Tartrate [Lopressor 25 mg Tablet] 12.5 mg PO Q12 #60 tab Referrals: KEENAN BISWAS MD [Primary Care Provider] - Follow up as needed MIGUELITO LOYA MD [ACTIVE STAFF] - Follow up in 3-5 days
[2018-03-11 20:31] VITALS: BP 148/86
--- NOTE | 2018-03-12 07:50 | EKG REPORT ---
SEVERITY:- BORDERLINE ECG - SINUS TACHYCARDIA BORDERLINE T ABNORMALITIES, ANTERIOR LEADS : Confirmed by: Trevor Chaudhari MD 12-Mar-2018 07:49:39
== END 2018-03-11 20:40 | disposition home or self-care (01) ==
LOC: ER 16:44
DX: S80.02XA Contusion of left knee, initial encounter (principal); M25.562 Pain in left knee; W19.XXXA Unspecified fall, initial encounter; R00.0 Tachycardia, unspecified; T50.996A Underdosing of other drugs, medicaments and biological substances, initial encounter; Z91.120 Patient's intentional underdosing of medication regimen due to financial hardship; Z91.14 Patient's other noncompliance with medication regimen; R55 Syncope and collapse; J44.9 Chronic obstructive pulmonary disease, unspecified; Z87.892 Personal history of anaphylaxis; Z91.018 Allergy to other foods
CPT/HCPCS: 93005; 99284; 90471; 36415; 82553; 82550; 85025; 80053; 84484; 71045; 73564; 90715; 93010; L1830; J3490

== ENCOUNTER 2018-03-13 15:42 | Emergency (ER) | payer OTHER ==
[2018-03-13 15:49] VITALS: BP 147/77
--- NOTE | 2018-03-13 16:05 | ER Document Report ---
HPI - HPI Pain Level: 3 Notes: Patient is a 52-year-old female who presents to the ED complaining of possible infection to her skin abrasion on her left knee that occurred last weekend. Patient states that she was evaluated on Monday and had negative x-ray at that time. Patient states that she has been trying to keep the knee clean, but noticed some increase in discharge and increase in pain. The pain does not radiate. She has not noticed any swelling or redness to the knee joint itself. She still able to ambulate without any difficulties otherwise. No other concerns or complaints at this time. Denies any history of MRSA or diabetes. Denies any headache, fever, URI, sore throat, chest pain, palpitations, syncope , cough, shortness of breath, wheeze, dyspnea, abdominal pain, nausea/vomiting/ diarrhea, urinary retention, dysuria, hematuria, numbness/tingling, muscle paralysis/weakness. - ROS Systems Reviewed and Negative: Yes All other systems reviewed and negative - REPRODUCTIVE Reproductive: DENIES: : Past Medical History - Social History Smoking Status: Unknown if Ever Smoked Family History: DM, Hyperlipidemia, Malignancy - Past Medical History Cardiac Medical History: Reports: Hx Atrial Fibrillation, Hx Hypercholesterolemia Pulmonary Medical History: Reports: Hx Bronchitis - Chronic, Hx COPD Renal/ Medical History: Denies: Hx Peritoneal Dialysis Musculoskeltal Medical History: Reports Hx Arthritis, Reports Hx Musculoskeletal Deformity, Reports Hx Musculoskeletal Trauma Psychiatric Medical History: Reports: Hx Depression Traumatic Medical History: Reports: Hx Fractures - Toe elbow ribs clavicle ulnar radius ankle nose and hand Past Surgical History: Reports: Hx Appendectomy, Hx Section, Hx Hysterectomy, Hx Oral Surgery - tonsil, Hx Orthopedic Surgery - buzz carpal, lt fa xochilt, rt knee meniscus, rt elbow pinched nerve release, Hx Tonsillectomy - Immunizations Immunizations up to date: Yes Hx Diphtheria, Pertussis, Tetanus Vaccination: Yes - ukn Hx Pneumococcal Vaccination: 01/01/07 Vertical Provider Document - CONSTITUTIONAL Agree With Documented VS: Yes Notes: PHYSICAL EXAMINATION: GENERAL: Well-appearing, well-nourished and in no acute distress. LUNGS: Breath sounds clear to auscultation bilaterally and equal. No wheezes rales or rhonchi. HEART: Regular rate and rhythm without murmurs, rubs, gallops. Musculoskeletal: Left knee: FROM to passive/active. Strength 5+/5. No effusion , erythema, warmth, or swelling. Extremities: No cyanosis, clubbing, or edema b/l. Peripheral pulses 2+. Capillary refill less than 3 seconds. NEUROLOGICAL: Cranial nerves grossly intact. Normal speech, normal gait. Normal sensory, motor exams PSYCH: Normal mood, normal affect. SKIN: Lt inferior anterior knee: there is a 5cm abrased area with granulated tissue present. There is scant serous discharge noted. + tenderness. No induration or abscess noted. - INFECTION CONTROL TRAVEL OUTSIDE OF THE [place] IN LAST 30 DAYS: No Course - Re-evaluation Re-evalutation: 03/13/18 16:02 Patient is an afebrile, well-hydrated, 52-year-old female who presents to the ED with a skin abrasion to her left knee and probable mild cellulitis starting. Vitals are acceptable. PE is otherwise unremarkable for any neurovascular compromise, obvious tendon/ligament rupture, obvious fracture/dislocation, septic joint. Patient has no significant tachycardia, tachypnea, or hypoxia. Low suspicion for any sepsis, meningitis, severe dehydration, respiratory compromise, or other systemic emergent condition at this time. Patient is aware that condition can change from initial presentation and she needs to monitor symptoms closely and seek medical attention with any acute changes. I will send her home with a prescription for Keflex. Wound instructions reviewed and wound dressing was placed today. Recheck with your PCM in 2-3 days. Return to the ED with any worsening/concerning symptoms otherwise as reviewed discharge. Patient is in agreement. - Vital Signs Vital signs: Temp Pulse Resp BP Pulse Ox 98.6 F 96 20 147/77 H 97 03/13/18 15:47 03/13/18 15:47 03/13/18 15:47 03/13/18 15:47 03/13/18 15:47 Discharge - Discharge Clinical Impression: Cellulitis of knee, left Abrasion of knee, left Qualifiers: Encounter type: initial encounter Qualified Code(s): S80.212A - Abrasion, left knee, initial encounter Condition: Stable Disposition: HOME, SELF-CARE Instructions: Cellulitis ([facility]), Cephalexin ([facility]) Additional Instructions: Keep the skin clean Wash with soap and water Tylenol/ibuprofen if needed Triple antibiotic ointment daily Take medication as directed Monitor for any worsening symptoms Recheck with your PCM in 2-3 days Return to the ED with any worsening symptoms and/or development of fever, headache, chest pain, palpitations, syncope, shortness of breath, trouble breathing, abdominal pain, n/v/d, abscess, purulent discharge, red streaks, worsening swelling, or other worsening symptoms that are concerning to you. Prescriptions: Cephalexin Monohydrate [Keflex 500 mg Capsule] 500 mg PO TID #30 capsule Forms: Elevated Blood Pressure Referrals: KEENAN BISWAS MD [Primary Care Provider] - 03/16/18
== END 2018-03-13 16:15 | disposition home or self-care (01) ==
LOC: ER 15:42
DX: L03.116 Cellulitis of left lower limb (principal); S80.212A Abrasion, left knee, initial encounter; X58.XXXA Exposure to other specified factors, initial encounter; I48.91 Unspecified atrial fibrillation; E78.00 Pure hypercholesterolemia, unspecified; J44.9 Chronic obstructive pulmonary disease, unspecified; Z90.710 Acquired absence of both cervix and uterus
CPT/HCPCS: 99282

== ENCOUNTER 2018-05-11 08:39 | Emergency (ER) | payer OTHER ==
[2018-05-11 08:53] VITALS: BP 146/80
--- NOTE | 2018-05-11 10:36 | ER Document Report ---
ED Breast Problem - General Chief Complaint: Breast Lump Stated Complaint: NECK/SHOULDERR PAIN, POSSIBLE ABSCESS Time Seen by Provider: 05/11/18 09:49 Mode of Arrival: Ambulatory Information source: Patient Notes: 52-year-old female presents to ED for complaint of painful lumps in the right breast. They are all to the lateral side of the right breast. She states that these sometimes cause pain in her neck and her shoulder blade. For the last 2 months. Patient states she does not have insurance except for the [facility] and does not have a way to get a mammogram or primary doctor to see her to evaluate a mammogram. TRAVEL OUTSIDE OF THE [place] IN LAST 30 DAYS: No - HPI Patient complains to provider of: Lump, Tenderness Onset: Other - 2 months Onset/Duration: Gradual Quality of pain: Sharp Severity: Moderate Pain Level: 3 Discharge description: None Associated Symptoms: Other - Painful lumps Similar symptoms previously: No Recently seen / treated by doctor: No - Related Data Allergies/Adverse Reactions: strawberry [[facility]] Allergy (Severe, Verified 03/13/18 15:43) Anaphylaxis Past Medical History - General Information source: Patient - Social History Smoking Status: Current Every Day Smoker Cigarette use (# per day): Yes - One half pack per day Smoking Education Provided: Yes - 4 minutes Frequency of alcohol use: Social Drug Abuse: None Occupation: Work study Lives with: Spouse/Significant other Family History: DM, Hyperlipidemia, Malignancy Patient has suicidal ideation: No Patient has homicidal ideation: No - Past Medical History Cardiac Medical History: Reports: Hx Atrial Fibrillation, Hx Hypercholesterolemia Pulmonary Medical History: Reports: Hx Bronchitis - Chronic, Hx COPD EENT Medical History: Reports: None Neurological Medical History: Reports: None Endocrine Medical History: Reports: None Renal/ Medical History: Reports: None Malignancy Medical History: Reports: None GI Medical History: Reports: None Musculoskeletal Medical History: Reports Hx Arthritis, Reports Hx Musculoskeletal Deformity, Reports Hx Musculoskeletal Trauma Skin Medical History: Reports None Psychiatric Medical History: Reports: Hx Depression Traumatic Medical History: Reports: Hx Fractures - Toe elbow ribs clavicle ulnar radius ankle nose and hand Infectious Medical History: Reports: None Past Surgical History: Reports: Hx Appendectomy, Hx Section, Hx Hysterectomy, Hx Oral Surgery - tonsil, Hx Orthopedic Surgery - buzz carpal, lt fa xochilt, rt knee meniscus, rt elbow pinched nerve release, Hx Tonsillectomy - Immunizations Immunizations up to date: Yes Hx Diphtheria, Pertussis, Tetanus Vaccination: Yes - ukn Hx Pneumococcal Vaccination: 01/01/07 Review of Systems - Review of Systems Constitutional: No symptoms reported EENT: No symptoms reported Cardiovascular: No symptoms reported Respiratory: No symptoms reported Gastrointestinal: No symptoms reported Genitourinary: No symptoms reported Female Genitourinary: No symptoms reported Musculoskeletal: Other - States the painful lump sometimes cause her to have pain in her right shoulder blade and neck Skin: No symptoms reported Hematologic/Lymphatic: Other - Painful lumps to the right breast Neurological/Psychological: No symptoms reported -: Yes All other systems reviewed and negative Physical Exam - Vital signs Vitals: Temp Pulse Resp BP Pulse Ox 97.9 F 94 16 146/80 H 98 05/11/18 08:52 05/11/18 08:52 05/11/18 08:52 05/11/18 08:52 05/11/18 08:52 Interpretation: Normal - General General appearance: Appears well, Alert - HEENT Head: Normocephalic, Atraumatic Eyes: Normal Pupils: PERRL - Respiratory Respiratory status: No respiratory distress Chest status: Tender, Other - Painful lumps to right breast the last 2 months. There is 1 at 10:00, one at 9:00, and one at 7:00. The one at 9:00 is more lateral than the other 2 Breath sounds: Normal Chest palpation: Normal - Cardiovascular Rhythm: Regular Heart sounds: Normal auscultation Murmur: No - Abdominal Inspection: Normal Distension: No distension Bowel sounds: Normal Tenderness: Nontender Organomegaly: No organomegaly - Back Back: Normal, Nontender - Extremities General upper extremity: Normal inspection, Nontender, Normal color, Normal ROM , Normal temperature General lower extremity: Normal inspection, Nontender, Normal color, Normal ROM , Normal temperature, Normal weight bearing. No: Chandrika's sign - Neurological Neuro grossly intact: Yes Cognition: Normal Orientation: AAOx4 [place] Coma Scale Eye Opening: Spontaneous [place] Coma Scale Verbal: Oriented A[place] Coma Scale Motor: Obeys Commands Aury Coma Scale Total: 15 Speech: Normal Motor strength normal: LUE, RUE, LLE, RLE Sensory: Normal - Psychological Associated symptoms: Normal affect, Normal mood - Skin Skin Temperature: Warm Skin Moisture: Dry Skin Color: Normal Course - Re-evaluation Re-evalutation: 05/11/18 10:36 I have consulted Renan Blackmon the marine operations coordinator for the emergency room and she will arrange mammogram and follow-up care as this patient has no insurance. She has found a program in the state to help get mammograms and treatment as needed for this patient. Patient has been instructed on how to follow through with this plan and when to go for her doctor's appointment. Patient has verbalized understanding and agreement with treatment plan. - Vital Signs Vital signs: Temp Pulse Resp BP Pulse Ox 97.9 F 94 16 146/80 H 98 05/11/18 08:52 05/11/18 08:52 05/11/18 08:52 05/11/18 08:52 05/11/18 08:52 Discharge - Discharge Clinical Impression: Breast lump on right side at 7 o'clock position, Breast lump on right side at 10 o'clock position, Breast lump on right side at 9 o'clock position Condition: Stable Disposition: HOME, SELF-CARE Additional Instructions: Breast Lumps There is a lump in your breast. We realize this will worry you. Most breast masses are not cancer. Most breast masses are fibrocystic disease, simple cysts, or fibroadenoma, which are benign. The first step is usually a mammogram or ultrasound of the breast. Your private physician, or a surgeon, can complete the evaluation. Be sure to keep your follow-up appointment. If the lump is malignant, early removal is your best chance of a cure. A brand planner Renan Blackmon has discussed these breast lumps with you and has arranged follow-up with [facility] to help you to obtain your mammogram and follow-up care for these breast lumps. Please keep appointments as she has arrange them to obtain your care and treatment. FOLLOW-UP CARE: If you have been referred to a physician for follow-up care, call the physician s office for an appointment as you were instructed or within the next two days. If you experience worsening or a significant change in your symptoms, notify the physician immediately or return to the Emergency Department at any time for re-evaluation. Forms: Elevated Blood Pressure, Smoking Cessation Education, Return to Work Referrals: KEENAN BISWAS MD [Primary Care Provider] - Follow up as needed [facility] [Provider Group] - Follow up as needed
== END 2018-05-11 10:49 | disposition home or self-care (01) ==
LOC: ER 08:39
DX: N63.0 Unspecified lump in unspecified breast (principal); N64.4 Mastodynia; J44.9 Chronic obstructive pulmonary disease, unspecified; F17.210 Nicotine dependence, cigarettes, uncomplicated; Z71.6 Tobacco abuse counseling; Z87.892 Personal history of anaphylaxis; Z91.018 Allergy to other foods; Z80.9 Family history of malignant neoplasm, unspecified
CPT/HCPCS: 99283

== ENCOUNTER → 2018-06-07 | Day surgery (SDC) | payer OTHER ==
--- NOTE | 2018-06-11 17:33 | WOMENS IMAGING REPORT ---
EXAM DESCRIPTION: U/S BREAST BX; RIGHT DIG DX MAMMO NO CHG COMPLETED DATE/TIME: 06/07/2018 2:21 pm; 06/07/2018 2:16 pm REASON FOR STUDY: RT BREAST BX; N63.13; RIGHT S/P US BX FOR CLIP PLACEMENT N63.13 N63.13 UNSPECIFIE D LUMP IN THE RIGHT BREAST, LOWER OUTER DU COMPARISON: Mammograms 05/17/2018 TECHNIQUE: The procedure was discussed with the patient and the patient agreed to proceed. The patient was scanned and the area of interest in the 10 o'clock position 10 cm from the nipple of the right breast was localized. This correlates with the area of concern on prior imaging studies. This area was targeted for ultrasound-guided core biopsy. After sterile skin prep and 4.5 mL local lidocaine 1% for skin and deep tissue anesthesia, a 14 gauge coaxial core biopsy needle was used to obtain several cores of tissue from the lesion. Under ultras ound guidance, a ribbon clip was placed in the areas sampled. There were no immediate post-procedure complications. MAMMOGRAM: Post-procedure two view mammogram was acquired in the digital mammogram suite. The clip WA S in the expected location. No significant hematoma. 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 LIMITATIONS: None. FINDINGS: Ultrasound guided breast biopsy as described above. POST PROCEDURE MAMMOGRAMS FOR MARKER PLACEMENT: Yes IMPRESSION: ULTRASOUND-GUIDED CORE BIOPSY OF THE RIGHT BREAST YIELDS A DIAGNOSIS OF POORLY DIFFERENT IATED INVASIVE DUCTAL CARCINOMA BI-RADS 6, KNOWN MALIGNANCY. APPROPRIATE ACTION SHOULD BE TAKEN COMMENT: COMMUNICATION: THIS RESULT WAS DISCUSSED WITH THE PATIENT, 1700 HOURS 06/11/2018. SHE UNDER STANDS THIS IS A MALIGNANT DIAGNOSIS AND THAT FURTHER INTERVENTION IS NECESSARY Patient medication list reviewed: Yes- Quality ID# [id number]:Eligible professional attests to documenting i n the medical record they obtained, updated, or reviewed the patient's current medications. TECHNICAL DOCUMENTATION: JOB ID: [id number] [employer]- All Rights Reserved Reading location - IP/workstation name: [email or web address]
--- NOTE | 2018-06-11 17:33 | WOMENS IMAGING REPORT ---
EXAM DESCRIPTION: U/S BREAST BX; RIGHT DIG DX MAMMO NO CHG COMPLETED DATE/TIME: 06/07/2018 2:21 pm; 06/07/2018 2:16 pm REASON FOR STUDY: RT BREAST BX; N63.13; RIGHT S/P US BX FOR CLIP PLACEMENT N63.13 N63.13 UNSPECIFIE D LUMP IN THE RIGHT BREAST, LOWER OUTER DU COMPARISON: Mammograms 05/17/2018 TECHNIQUE: The procedure was discussed with the patient and the patient agreed to proceed. The patient was scanned and the area of interest in the 10 o'clock position 10 cm from the nipple of the right breast was localized. This correlates with the area of concern on prior imaging studies. This area was targeted for ultrasound-guided core biopsy. After sterile skin prep and 4.5 mL local lidocaine 1% for skin and deep tissue anesthesia, a 14 gauge coaxial core biopsy needle was used to obtain several cores of tissue from the lesion. Under ultras ound guidance, a ribbon clip was placed in the areas sampled. There were no immediate post-procedure complications. MAMMOGRAM: Post-procedure two view mammogram was acquired in the digital mammogram suite. The clip WA S in the expected location. No significant hematoma. 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 LIMITATIONS: None. FINDINGS: Ultrasound guided breast biopsy as described above. POST PROCEDURE MAMMOGRAMS FOR MARKER PLACEMENT: Yes IMPRESSION: ULTRASOUND-GUIDED CORE BIOPSY OF THE RIGHT BREAST YIELDS A DIAGNOSIS OF POORLY DIFFERENT IATED INVASIVE DUCTAL CARCINOMA BI-RADS 6, KNOWN MALIGNANCY. APPROPRIATE ACTION SHOULD BE TAKEN COMMENT: COMMUNICATION: THIS RESULT WAS DISCUSSED WITH THE PATIENT, 1700 HOURS 06/11/2018. SHE UNDER STANDS THIS IS A MALIGNANT DIAGNOSIS AND THAT FURTHER INTERVENTION IS NECESSARY Patient medication list reviewed: Yes- Quality ID# [id number]:Eligible professional attests to documenting i n the medical record they obtained, updated, or reviewed the patient's current medications. TECHNICAL DOCUMENTATION: JOB ID: [id number] [employer]- All Rights Reserved Reading location - IP/workstation name: [facility]-RR
== END ==
LOC: WI 12:44
PROVIDERS: ATTEND Surgery
DX: C50.411 Malignant neoplasm of upper-outer quadrant of right female breast (principal)
CPT/HCPCS: 19083; 88305; 88341; 88342

== ENCOUNTER → 2018-06-26 | Outpatient (CLI) | payer OTHER ==
--- NOTE | 2018-06-26 09:12 | WOMENS IMAGING REPORT ---
EXAM DESCRIPTION: U/S EXTREMITY NONVASCULAR COMP COMPLETED DATE/TIME: 06/26/2018 7:43 am REASON FOR STUDY: BREAST CANCER C50.411 MALIG NEOPLM OF UPPER-OUTER QUADRANT OF RIGHT FEMALE COMPARISON: None. TECHNIQUE: Dynamic and static grayscale images acquired of the localized site of clinical concern an d recorded on PACS. Additional selected color Doppler and spectral images recorded. SITE OF CONCERN: Right axilla. LIMITATIONS: None. FINDINGS: SKIN AND SUBCUTANEOUS TISSUES: No masses. No fluid collections. No edema. No foreign lalito s. DEEP SOFT TISSUES/MUSCLES: No masses. No fluid collections. No edema. VASCULAR: No increased or decreased vascularity. No occlusions. OTHER: No other significant finding. IMPRESSION: NO SOFT TISSUE MASS, FLUID COLLECTION, OR FOREIGN BODY. TECHNICAL DOCUMENTATION: JOB ID: [id number] [employer]- All Rights Reserved Reading location - IP/workstation name: [email or web address]
== END ==
LOC: WI 07:11
PROVIDERS: ATTEND Internal Medicine
DX: C50.411 Malignant neoplasm of upper-outer quadrant of right female breast (principal)
CPT/HCPCS: 76881

== ENCOUNTER 2018-07-19 07:46 | Day surgery (SDC) | payer MEDICAID, OTHER ==
[2018-07-13 10:05] LABS: HEMOGLOBIN 15.7 g/dL (12.0-15.5); MEAN CORPUSCULAR HEMOGLOBIN 33.3 pg (27.0-33.4); MEAN CORPUSCULAR HGB CONC 34.9 g/dL (32.0-36.0); MEAN CORPUSCULAR VOLUME 95 fl (80-97); PLATELET COUNT 248 10^3/uL (150-450); RED BLOOD COUNT 4.72 10^6/uL (3.72-5.28); RED CELL DISTRIBUTION WIDTH 14.2 % (11.5-14.0); WHITE BLOOD COUNT 9.7 10^3/uL (4.0-10.5)
--- NOTE | 2018-07-13 10:09 | RADIOLOGY REPORT (SQ) ---
EXAM DESCRIPTION: CHEST PA/LATERAL COMPLETED DATE/TIME: 07/13/2018 9:50 am REASON FOR STUDY: PRE-OP COMPARISON: 03/11/2018 EXAM PARAMETERS: NUMBER OF VIEWS: two views TECHNIQUE: Digital Frontal and Lateral radiographic views of the chest acquired. RADIATION DOSE: NA LIMITATIONS: none FINDINGS: LUNGS AND PLEURA: No opacities, masses or pneumothorax. No pleural effusion. MEDIASTINUM AND HILAR STRUCTURES: No masses or contour abnormalities. HEART AND VASCULAR STRUCTURES: Heart normal size. No evidence for failure. BONES: No acute findings. HARDWARE: None in the chest. OTHER: No other significant finding. IMPRESSION: 1. No significant interval changes since the previous examination dated 03/11/2018. No acute findings. TECHNICAL DOCUMENTATION: JOB ID: [id number] [employer]- All Rights Reserved Reading location - IP/workstation name: [email or web address]
[2018-07-13 10:15] LABS: ALANINE AMINOTRANSFERASE 29 U/L (9-52); ALBUMIN 4.4 g/dL (3.5-5.0); ALKALINE PHOSPHATASE 87 U/L (38-126); ANION GAP 10 (5-19); ASPARTATE AMINO TRANSFERASE 21 U/L (14-36); BILIRUBIN,DIRECT 0.1 mg/dL (0.0-0.4); BILIRUBIN,TOTAL 0.5 mg/dL (0.2-1.3); BLOOD UREA NITROGEN 12 mg/dL (7-20); CALCIUM 10.1 mg/dL (8.4-10.2); CARBON DIOXIDE 24 mmol/L (22-30); CHLORIDE 107 mmol/L (98-107); GLUCOSE 100 mg/dL (75-110); POTASSIUM 4.6 mmol/L (3.6-5.0); SODIUM 141.1 mmol/L (137-145); TOTAL PROTEIN 7.6 g/dL (6.3-8.2)
--- NOTE | 2018-07-13 22:41 | EKG REPORT ---
SEVERITY:- BORDERLINE ECG - SINUS RHYTHM BORDERLINE PROLONGED QT INTERVAL : Confirmed by: Julita Gilman MD 13-Jul-2018 22:40:07
[~2018-07-19 07:46] MED LIST: CEFAZOLIN 2 GM/D5W RTU 2 GM/50 ML RTUPB IV ONE; CEFAZOLIN 2 GM/D5W RTU 2 GM/50 ML RTUPB IV PRN; LACTATED RINGERS 1000 ML IV PRN; LIDOCAINE 4% TRANSPARENT DRESSING 5 GM KIT ONE; LIDOCAINE 4% TRANSPARENT DRESSING 5 GM KIT TP PRN
[2018-07-19] MEDS ORDERED: DEXAMETHASONE SOD PHOSPHATE INJ 4 MG/1 ML VIAL ONE (08:14)
[2018-07-19] MEDS ORDERED: SUCCINYLCHOLINE CHLORIDE INJ 200 MG/10 ML VIAL ONE (08:14)
[2018-07-19] MEDS ORDERED: KETOROLAC TROMETHAMINE 60 MG/2 ML SDV ONE (08:14)
[2018-07-19] MEDS ORDERED: ROCURONIUM BROMIDE INJ 50 MG/5 ML VIAL IV ONE (08:14)
[2018-07-19] MEDS ORDERED: ONDANSETRON HCL INJ/PF 4 MG/2 ML SDV ONE (08:14)
[2018-07-19] MEDS ORDERED: ACETAMINOPHEN 1,000 MG/100 ML RTUPB IV ONE (08:16)
[2018-07-19] MEDS ORDERED: MIDAZOLAM 2 MG/2 ML INJ ONE ×2 (08:16→10:58)
[2018-07-19] MEDS ORDERED: FENTANYL CITRATE INJ/PF 100 MCG/2 ML AMPUL ONE ×3 (08:16→15:17)
[2018-07-19] MEDS ORDERED: PROPOFOL INJ 200 MG/20 ML VIAL IV ONE (08:16)
[2018-07-19] MEDS ORDERED: BUPIVACAINE HCL 0.5 % INJ/PF 30 ML SDV ONE (10:17)
[2018-07-19] MEDS ORDERED: METHYLENE BLUE 50 MG/10 ML AMPULE ONE (10:18)
[2018-07-19] MEDS ORDERED: MIDAZOLAM 2 MG/2 ML INJ IV ONE (11:15)
--- NOTE | 2018-07-19 11:25 | RADIOLOGY REPORT (SQ) ---
EXAM DESCRIPTION: NM LYMPHATICS/LYMPH GLANDS COMPLETED DATE/TIME: 07/19/2018 11:01 am REASON FOR STUDY: R BREAST CA C50.911 MALIGNANT NEOPLASM OF UNSP SITE OF RIGHT FEMALE K[place]N COMPARISON: None. RADIONUCLIDE AND DOSE: 548 microcuries TC-99m tilmanocept - [employer]. The route of agent administration: Subcutaneous in the skin. TECHNIQUE: The skin of the right breast was prepped in sterile fashion. The radiopharmaceutical was administered in equally divided doses in the periareolar breast. LIMITATIONS: None. FINDINGS: Images demonstrate activity at the injection site. IMPRESSION: ADMINISTRATION OF RADIOPHARMACEUTICAL FOR SENTINEL LYMPH NODE EVALUATION. TECHNICAL DOCUMENTATION: JOB ID: [id number] [employer]- All Rights Reserved Reading location - IP/workstation name: [email or web address]
[2018-07-19] MEDS ORDERED: PROMETHAZINE HCL INJ 25 MG/1 ML VIAL IV PRN ×2 (13:22)
[2018-07-19] MEDS ORDERED: DIPHENHYDRAMINE HCL 50 MG/ML VIAL IV PRN (13:22)
[2018-07-19] MEDS ORDERED: MORPHINE SULFATE 10 MG/ML INJ IV PRN (13:22)
[2018-07-19] MEDS ORDERED: FENTANYL CITRATE INJ/PF 100 MCG/2 ML AMPUL IV PRN ×3 (13:22)
[2018-07-19] MEDS ORDERED: MEPERIDINE HCL/PF INJ 25 MG/1 ML DISP.SYRIN IV PRN (13:22)
[2018-07-19] MEDS ORDERED: HYDROMORPHONE HCL INJ/PF 2 MG/ML AMPULE ONE (14:34)
[2018-07-19] MEDS ORDERED: PROMETHAZINE HCL INJ 25 MG/1 ML VIAL ONE (15:08)
[2018-07-19] MEDS ORDERED: HYDROCODONE/ACETAMINOPHEN 10-325 MG TABLET ONE (16:27)
[2018-07-19 17:47] VITALS: BP 140/77
--- NOTE | 2018-07-20 07:49 | Discharge Summary ---
Discharge Summary (SDC) - Discharge Final Diagnosis: Right breast cancer Date of Surgery: 07/19/18 Discharge Date: 07/19/18 Condition: Stable Forms: ASU Anesthesia D/C Instruction, Discharge POC-Surgical Service Referrals: PAUL AMANDA MD [ACTIVE STAFF] - 07/31/18 8:15 am Respiratory Treatments at Home: Deep Breathing/Coughing Discharge Activity: Activity As Tolerated, Balance Activity w/Rest, No Driving, No Lifting Over 10 Pounds, No Lifting/Push/Pulling, No tub bath Home Care Assistance: None Needed Report the Following to Your Physician Immediately: Shortness of Breath, Vomiting, Increase in Pain, Fever over 101 Degrees, Unusual Bleeding, Redness, Warmth, Drainage-Foul Smelling, Tingling Sensation, IV Site Infection Signs
--- NOTE | 2018-07-20 07:58 | Operative Report ---
Nonrecallable Operative Report DATE OF SURGERY: 07/19/18 PREOPERATIVE DIAGNOSIS: Right breast cancer POSTOPERATIVE DIAGNOSIS: Same as above OPERATION: 1. Dawson lymph node biopsy right axilla. 2. Right upper outer quadrant breast lumpectomy. SURGEON: PAUL AMANDA ANESTHESIA: GA TISSUE REMOVED OR ALTERED: 1. Dawson lymph node, right axilla. 2. Extra tissue, right axilla. 3. Lumpectomy right breast, upper outer quadrant. COMPLICATIONS: None apparent ESTIMATED BLOOD LOSS: 20 cc PROCEDURE: Drains/implants: None. Procedure in detail: After informed consent was obtained, the patient was laid in the supine position in the operating room. The area of the right breast and axilla were prepped and draped in a normal sterile fashion. The gamma probe was used to michael the zone of diffusion on the right breast. It was also used to identify a hot spot in the right axilla. An incision was made in the right axilla in oblique fashion. This was done with a 15 blade scalpel. Using sharp dissection, blunt dissection, judicious electrocautery, and the aid of the gamma probe, the sentinel lymph node was identified and excised. An ex vivo count was performed of the sentinel lymph node. The ex vivo count measured 11, 207. A background count was then performed, measuring 32. This confirmed that the sentinel lymph nodes were completely removed. The wound was irrigated, hemostasis was achieved, and the subcutaneous tissue was closed using 3-0 Vicryl suture. The overlying skin was closed using 4-0 Vicryl Rapide suture in subcuticular fashion. Attention was then turned to the right breast lumpectomy. A curvilinear incision was created in the right lateral breast. Dissection was carried through the subcutaneous tissue using electrocautery. The mass was easily palpable. A generous lumpectomy was performed, down to the pectoralis muscle. Once the specimen was removed, it was oriented and marked with sutures. Short stitch is superior, long stitch is lateral, one long one short is anterior. The wound was then irrigated. The subcutaneous tissue was closed with 3-0 Vicryl suture in simple interrupted fashion. The overlying skin was closed using 4-0 Vicryl Rapide suture in subcuticular fashion. A dressing was placed, and the procedure was concluded. All sponge, instrument, and needle counts were correct x2. Condition: Stable.
--- NOTE | 2018-07-23 13:10 | RADIOLOGY REPORT (SQ) ---
EXAM DESCRIPTION: BREAST SPECIMEN COMPLETED DATE/TIME: 07/19/2018 2:56 pm REASON FOR STUDY: RT BREAST LUMPECTOMY /BX IN OR RIGHT SIDE C50.911 MALIGNANT NEOPLASM OF UNSP SITE OF RIGHT FEMALE [place]N COMPARISON: None. TECHNIQUE: Specimen radiograph from breast procedure performed in the operating room. LIMITATIONS: None. FINDINGS: Specimen radiograph from breast procedure performed in the operating room. Please see procedure note for details and final pathology. IMPRESSION: Specimen radiograph. TECHNICAL DOCUMENTATION: JOB ID: [id number] Reading location - IP/workstation name: [facility]-[email or web address]
== END 2018-07-19 17:45 | disposition home or self-care (01) ==
LOC: OROUT 07:46
PROVIDERS: ATTEND Surgery
DX: C50.911 Malignant neoplasm of unspecified site of right female breast (principal); J44.9 Chronic obstructive pulmonary disease, unspecified; E78.00 Pure hypercholesterolemia, unspecified; I48.91 Unspecified atrial fibrillation; F17.210 Nicotine dependence, cigarettes, uncomplicated; Z79.51 Long term (current) use of inhaled steroids; Z79.899 Other long term (current) drug therapy
CPT/HCPCS: 93005; 36415; 85027; 80053; 88342 ×2; 88305 ×2; 88307 ×2; 71046; 78195; 93010; 76098; 19301; 38500; A9520; J2250; J3490 ×3; J1100; J1885; J3010; J1170; J2550; J0330; J2405; J2704; J0690; J0131; Q9968; 1610

== ENCOUNTER → 2018-11-30 | Outpatient (CLI) | payer MEDICAID, OTHER ==
--- NOTE | 2018-11-30 16:47 | XCELERA REPORT ---
[address] [facility] [address] Lower Extremity Venous Evaluation Procedure: Color flow and duplex imaging of the veins of the left lower extremity as well as the right Common Femoral vein. Right Sided Venous Evaluation The right common femoral vein is fully compressible. Spontaneous and phasic flow is present in the right common femoral vein. Left Sided Venous Evaluation Lucent structure 3.6 x 1.9 x 0.3 cms. Normal vessel filling wall to wall, compression and augmentation as well as Colour flow down to the infrageniculate veins. Interpretation Summary No duplex evidence of DVT or obstruction in the left lower extremity nor in the right Common Femoral vein. Left sided Popliteal cyst. Name: DM WOLF Age: 53 yrs Gender: Female : 1965 Patient Status: Outpatient Patient Location: Study Date: 11/30/2018 12:49 PM Reason For Study: LLE PAIN/SWELLING Ordering Physician: ELVA SIMEON Performed By: Leena Villagomez : ELVA SIMEON > Shukri Delgado
== END ==
LOC: SP 11:34
PROVIDERS: ATTEND Physician Assistant Medical
DX: M79.89 Other specified soft tissue disorders (principal); M79.605 Pain in left leg
CPT/HCPCS: 93971

== ENCOUNTER → 2019-01-23 | Outpatient (CLI) | payer MEDICAID ==
--- NOTE | 2019-01-23 09:23 | WOMENS IMAGING REPORT ---
EXAM DESCRIPTION: BONE DENSITY HIP/SPINE COMPLETED DATE/TIME: 01/23/2019 9:12 am REASON FOR STUDY: M85.811 OTHER SPECIFIED DISORDERS OF BONE DENSITY AND STRUCTURE, RIGHT SHOU M85.81 1 OTH DISRD OF BONE DENSITY AND STRUCTURE, RIGHT SHOUL COMPARISON: None. TECHNIQUE: Dual-Energy X-ray Absorptiometry (DEXA) of the AP Spine and Hip. LIMITATIONS: None. FINDINGS: LUMBAR SPINE: The bone mineral density (BMD) measured from L1-L4 in the AP projection correlates with a T-score of -0.1, which is normal as defined by the World Health Organization. HIP: The bone mineral density (BMD) measured in the left hip correlates with a T-score of -1.6, which is o steopenia as defined by the World Health Organization. IMPRESSION: 1. LUMBAR SPINE: NORMAL. 2. HIP: OSTEOPENIA. COMMENT: The World Health Organization defines low BMD as follows: T-score: Normal: Greater than -1.0 Osteopenia: Between -1.0 and -2.5 Osteoporosis: Less than -2.5 without fractures Established osteoporosis: Less than -2.5 with fractures In general, you may wish to consider: Diagnosis Treatment Follow-up DEXA Normal BMD Prevention 2-3 years Osteopenia Prevention/Therapy 1-2 years Osteoporosis Therapy Yearly TECHNICAL DOCUMENTATION: JOB ID: [id number]- All Rights Reserved Reading location - IP/workstation name: [email or web address]
== END ==
LOC: WI 08:41
PROVIDERS: ATTEND Physician Assistant Medical
DX: M85.811 Other specified disorders of bone density and structure, right shoulder (principal)
CPT/HCPCS: 77080

== ENCOUNTER → 2019-03-14 | Outpatient (CLI) | payer MEDICAID ==
--- NOTE | 2019-03-17 15:46 | WOMENS IMAGING REPORT ---
EXAM DESCRIPTION: 3D DX MAMMO BILAT; U/S BREAST UNILATERAL, COMPL COMPLETED DATE/TIME: 03/14/2019 8:50 am; 03/14/2019 9:17 am REASON FOR STUDY: C50.919, MALIGNANT NEOPLASM OF UNSPECIFIED SITE OF UNSPECIFIED FEMALE BREAS; RT BR EAST Z98.890 C50.919 Z98.890 OTHER SPECIFIED POSTPROCEDURAL STATES C50.919 MALIGNANT NEOPLASM OF UN SP SITE OF UNSPECIFIED FEMAL COMPARISON: Specimen radiographs 07/19/2018 Right breast ultrasound-guided core biopsy and post biopsy mammograms 06/07/2018 EXAM PARAMETERS: Standard craniocaudal and mediolateral oblique views of each breast recorded using digital acquisition and breast tomosynthesis. Additional right breast 90 mediolateral view was perf ormed. Whole breast Right breast ultrasound was also performed. Read with the assistance of CAD: .[facility] - [employer] Version 9.2 LIMITATIONS: None. FINDINGS: RIGHT BREAST MASSES: No suspicious masses. CALCIFICATIONS: No new or suspicious calcifications. ARCHITECTURAL DISTORTION: Patient is post lumpectomy upper outer quadrant with radiation right breast , with upper outer quadrant architectural distortion postoperative in nature. 4 cm oil cyst in the o perative cavity is suspected by mammography DEVELOPING DENSITY: None. ASYMMETRY: None noted. OTHER: Diffuse right breast skin thickening post radiation therapy. Surgical clips right axilla. LEFT BREAST MASSES: No suspicious masses. CALCIFICATIONS: No new or suspicious calcifications. ARCHITECTURAL DISTORTION: None. DEVELOPING DENSITY: None. ASYMMETRY: None noted. OTHER: No other significant finding. Right whole breast ultrasound: Ultrasound of the right upper outer quadrant demonstrates a postoperative complex fluid collection wi th fluid with low level internal echoes, 4.5 x 3.5 x 1.4 cm in size. This correlates with the operat karen cavity seen by mammography. No worrisome solid nodule or increased color flow/hypervascularity. Remainder of the right breast ultrasound demonstrates diffuse skin thickening post radiation therapy . IMPRESSION: No mammographic/tomosynthesis or sonographic evidence for malignancy right breast. Post operative fluid cavity in the upper outer quadrant, 4.5 x 3.5 x 1.4 cm in size. No mammographic/ tomosynthesis evidence for malignancy left breast. BREAST DENSITY: b. There are scattered areas of fibroglandular density. BIRAD: ASSESSMENT: 2 Benign findings. RECOMMENDATION: RECOMMENDED FOLLOW UP: Please continue right breast diagnostic, left breast screenin g mammography/tomosynthesis in March 2020 SPECIFIC INTERVENTION/IMAGING/CONSULTATION RECOMMENDED:No additional intervention/ imaging/consultati on needed at this time. COMMUNICATION:Patient notified by letter COMMENT: The patient has been notified of the results by letter per SA requirements. Additional no tification policies are in place for contacting patient with suspicious or incomplete findings. Quality ID #225: The [employer] recommends an annual screening mammogram for women aged 40 years or over. This facility utilizes a reminder system to ensure that all patients receive reminder letters, and/or direct phone calls for appointments. This includes reminders for routine scr eening mammograms, diagnostic mammograms, or other Breast Imaging Interventions when appropriate. Th is patient will be placed in the appropriate reminder system. TECHNICAL DOCUMENTATION: FINDING NUMBER: (1) ASSESSMENT: (1) JOB ID: [id number] [employer]- All Rights Reserved Reading location - IP/workstation name: [email or web address]
== END ==
LOC: WI 08:05
PROVIDERS: ATTEND Surgery
DX: C50.911 Malignant neoplasm of unspecified site of right female breast (principal); Z98.890 Other specified postprocedural states
CPT/HCPCS: 76641; 77066; G0279; 77062

== ENCOUNTER → 2019-08-16 | Outpatient (CLI) | payer MEDICAID ==
--- NOTE | 2019-08-16 15:39 | RADIOLOGY REPORT (SQ) ---
EXAM DESCRIPTION: CT CHEST WITHOUT COMPLETED DATE/TIME: 08/16/2019 3:20 pm REASON FOR STUDY: R91.1 SOLITARY PULMONARY NODULE R91.1 SOLITARY PULMONARY NODULE COMPARISON: Chest x-ray dated 07/13/2018 TECHNIQUE: CT scan performed of the chest without intravenous contrast. Images reviewed with lung, soft tissue and bone windows. Reconstructed coronal and sagittal MPR images reviewed. All images st ored on PACS. All CT scanners at this facility use dose modulation, iterative reconstruction, and/or weight based d osing when appropriate to reduce radiation dose to as low as reasonably achievable (ALARA). [facility]: Dose Right [facility]: CareDose [facility]: Dose Right [facility]: Teradose 4D [facility]: Smart Technologies RADIATION DOSE: CT Rad equipment meets quality standard of care and radiation dose reduction techniq ues were employed. CTDIvol: 8.6 mGy. DLP: 337 mGy-cm. mGy. LIMITATIONS: No technical limitations. FINDINGS: LUNGS AND PLEURA: Mild bilateral centrilobular emphysematous changes. No consolidation. No pleural effusions. No suspicious pulmonary nodules. Minimal ground-glass opacity in the right ba se most consistent with atelectasis. Focal airspace disease in the periphery the left lower lobe is most likely atelectasis as well. HILAR AND MEDIASTINAL STRUCTURES: No identified masses or abnormal nodes. No obvious aneurysm. HEART AND VASCULAR STRUCTURES: No aneurysm. No pericardial effusion. UPPER ABDOMEN: Prior cholecystectomy. THYROID AND OTHER SOFT TISSUES: No thyroid lesions. There is a focal fluid collection in the lateral aspect of the right breast. This measures 3 cm in greatest diameter. There is right-sided skin thi ckening. Focal mass in the right breast cannot be excluded best demonstrated on series 2, image 28. BONES: No significant finding. HARDWARE: None in the chest. OTHER: No other significant findings. IMPRESSION: Skin thickening involving the right breast with focal fluid collection in the right late ral aspect of the breast measured 3.0 cm. No focal suspicious pulmonary nodules. No pathologic adenopathy. Mild bilateral centrilobular emphy sematous changes. TECHNICAL DOCUMENTATION: JOB ID: [id number] Quality ID # [id number]: Final reports with documentation of one or more dose reduction techniques (e.g., Au tomated exposure control, adjustment of the mA and/or kV according to patient size, use of iterative reconstruction technique) 2010 [employer]- All Rights Reserved Reading location - IP/workstation name: [email or web address]
== END ==
LOC: RAD 14:44
PROVIDERS: ATTEND Internal Medicine Critical Care Medicine
DX: R91.1 Solitary pulmonary nodule (principal); J44.9 Chronic obstructive pulmonary disease, unspecified
CPT/HCPCS: 71250

== ENCOUNTER → 2019-09-11 | Outpatient (CLI) | payer MEDICAID ==
--- NOTE | 2019-09-11 10:38 | WOMENS IMAGING REPORT ---
EXAM DESCRIPTION: 3D DX MAMMO RIGHT UNILAT; U/S BREAST UNILATERAL, COMPL COMPLETED DATE/TIME: 09/11/2019 8:38 am; 09/11/2019 9:23 am REASON FOR STUDY: Z85.3 PERSONAL HISTORY OF MALIGNANT NEOPLASM OF BREAST; HX OF RT BREAST CA Z85.3 PERSONAL HISTORY OF MALIGNANT NEOPLASM OF BREAST COMPARISON: 03/14/2019 ,06/07/2018 EXAM PARAMETERS: Standard craniocaudal and mediolateral oblique images of the breast recorded using digital acquisition and breast tomosynthesis. True lateral view. Read with the assistance of CAD. .[facility] - [employer] Senior Clinical Data Coordinator Version 9.2 LIMITATIONS: None. FINDINGS: BREAST LATERALITY: right MASSES: No suspicious masses. CALCIFICATIONS: No new or suspicious calcifications. ARCHITECTURAL DISTORTION: Surgical bed upper outer quadrant, stable. ASYMMETRY: None noted. OTHER: Skin thickening. Ultrasound demonstrates surgical bed fluid collection 3.3 x 2.2 x 1.2 cm, previously 4.5 x 3.5 x 1.4 cm. IMPRESSION: Postsurgical changes. BREAST DENSITY: b. There are scattered areas of fibroglandular density. BIRAD: ASSESSMENT: 2 Benign findings. RECOMMENDATION: RECOMMENDED FOLLOW UP: Per Dr Herrera. SPECIFIC INTERVENTION/IMAGING/CONSULTATION RECOMMENDED:No additional intervention/ imaging/consultati on needed at this time. COMMUNICATION:The imaging findings were not discussed with the patient. Her referring provider has be en notified of the findings. COMMENT: The patient has been notified of the results by letter per MQSA requirements. Additional no tification policies are in place for contacting patient with suspicious or incomplete findings. Quality ID #225: The [employer] recommends an annual screening mammogram for women aged 40 years or over. This facility utilizes a reminder system to ensure that all patients receive reminder letters, and/or direct phone calls for appointments. This includes reminders for routine scr eening mammograms, diagnostic mammograms, or other Breast Imaging Interventions when appropriate. Th is patient will be placed in the appropriate reminder system. TECHNICAL DOCUMENTATION: FINDING NUMBER: (1) ASSESSMENT: (1) JOB ID: [id number] [employer]- All Rights Reserved Reading location - IP/workstation name: [email or web address]
--- NOTE | 2019-09-11 10:38 | WOMENS IMAGING REPORT ---
EXAM DESCRIPTION: 3D DX MAMMO RIGHT UNILAT; U/S BREAST UNILATERAL, COMPL COMPLETED DATE/TIME: 09/11/2019 8:38 am; 09/11/2019 9:23 am REASON FOR STUDY: Z85.3 PERSONAL HISTORY OF MALIGNANT NEOPLASM OF BREAST; HX OF RT BREAST CA Z85.3 PERSONAL HISTORY OF MALIGNANT NEOPLASM OF BREAST COMPARISON: 03/14/2019 ,06/07/2018 EXAM PARAMETERS: Standard craniocaudal and mediolateral oblique images of the breast recorded using digital acquisition and breast tomosynthesis. True lateral view. Read with the assistance of CAD. .[facility] - [employer] Sales And Service Specialist Version 9.2 LIMITATIONS: None. FINDINGS: BREAST LATERALITY: right MASSES: No suspicious masses. CALCIFICATIONS: No new or suspicious calcifications. ARCHITECTURAL DISTORTION: Surgical bed upper outer quadrant, stable. ASYMMETRY: None noted. OTHER: Skin thickening. Ultrasound demonstrates surgical bed fluid collection 3.3 x 2.2 x 1.2 cm, previously 4.5 x 3.5 x 1.4 cm. IMPRESSION: Postsurgical changes. BREAST DENSITY: b. There are scattered areas of fibroglandular density. BIRAD: ASSESSMENT: 2 Benign findings. RECOMMENDATION: RECOMMENDED FOLLOW UP: Per Dr Herrera. SPECIFIC INTERVENTION/IMAGING/CONSULTATION RECOMMENDED:No additional intervention/ imaging/consultati on needed at this time. COMMUNICATION:The imaging findings were not discussed with the patient. Her referring provider has be en notified of the findings. COMMENT: The patient has been notified of the results by letter per MQSA requirements. Additional no tification policies are in place for contacting patient with suspicious or incomplete findings. Quality ID #225: The [employer] recommends an annual screening mammogram for women aged 40 years or over. This facility utilizes a reminder system to ensure that all patients receive reminder letters, and/or direct phone calls for appointments. This includes reminders for routine scr eening mammograms, diagnostic mammograms, or other Breast Imaging Interventions when appropriate. Th is patient will be placed in the appropriate reminder system. TECHNICAL DOCUMENTATION: FINDING NUMBER: (1) ASSESSMENT: (1) JOB ID: [id number] [employer]- All Rights Reserved Reading location - IP/workstation name: [email or web address]
== END ==
LOC: WI 07:55
PROVIDERS: ATTEND Surgery
DX: Z08 Encounter for follow-up examination after completed treatment for malignant neoplasm (principal); Z85.3 Personal history of malignant neoplasm of breast
CPT/HCPCS: 76641; 77065

== ENCOUNTER → 2020-09-10 | Outpatient (CLI) | payer MEDICAID ==
--- NOTE | 2020-09-10 11:45 | WOMENS IMAGING REPORT ---
EXAM DESCRIPTION: 3D DX MAMMO BILAT IMAGES COMPLETED DATE/TIME: 09/10/2020 9:20 am REASON FOR STUDY: Z85.3 PERSONAL HISTORY OF MALIGNANT NEOPLASM OF BREAST Z85.3 PERSONAL HISTORY OF MALIGNANT NEOPLASM OF BREAST COMPARISON: 09/11/2019 EXAM PARAMETERS: Standard craniocaudal and mediolateral oblique views of each breast recorded using digital acquisition and breast tomosynthesis. True lateral view both breasts, cone compression views left breast. Read with the assistance of CAD: .[facility] - [employer] Version 9.2 LIMITATIONS: None. FINDINGS: RIGHT BREAST MASSES: No suspicious masses. CALCIFICATIONS: No new or suspicious calcifications. ARCHITECTURAL DISTORTION: Stable architectural distortion upper outer quadrant at lumpectomy site. ASYMMETRY: None noted. OTHER: No other significant findings. LEFT BREAST MASSES: No suspicious masses. CALCIFICATIONS: No new or suspicious calcifications. ARCHITECTURAL DISTORTION: None. ASYMMETRY: None noted. OTHER: No other significant finding. IMPRESSION: Postsurgical changes right breast. No evidence of malignancy in the left breast. BREAST DENSITY: b. There are scattered areas of fibroglandular density. BIRAD: ASSESSMENT: 0 Incomplete: Needs additional imaging evaluation and/or prior mammograms for co mparison. RECOMMENDATION: RECOMMENDED FOLLOW UP: Ultrasound of the left breast directed to any palpable abnorm ality. There was no order for this on today's visit. SPECIFIC INTERVENTION/IMAGING/CONSULTATION RECOMMENDED:See above. COMMUNICATION:The imaging findings were not discussed with the patient. Her referring provider has be en notified of the findings. COMMENT: The patient has been notified of the results by letter per MQSA requirements. Additional no tification policies are in place for contacting patient with suspicious or incomplete findings. Quality ID #225: The [employer] [employer] recommends an annual screening mammogram for women aged 40 years or over. This facility utilizes a reminder system to ensure that all patients receive reminder letters, and/or direct phone calls for appointments. This includes reminders for routine scr eening mammograms, diagnostic mammograms, or other Breast Imaging Interventions when appropriate. Th is patient will be placed in the appropriate reminder system. TECHNICAL DOCUMENTATION: FINDING NUMBER: (1) ASSESSMENT: (1) JOB ID: [id number] 2010 [email or web address]- All Rights Reserved Reading location - IP/workstation name: [email or web address]
== END ==
LOC: WI 09:38
PROVIDERS: ATTEND Surgery
DX: Z08 Encounter for follow-up examination after completed treatment for malignant neoplasm (principal); Z85.3 Personal history of malignant neoplasm of breast
CPT/HCPCS: 77066; G0279; 77062

== ENCOUNTER → 2020-09-28 | Outpatient (CLI) | payer MEDICAID ==
--- NOTE | 2020-09-28 16:43 | WOMENS IMAGING REPORT ---
EXAM DESCRIPTION: U/S BREAST UNILATERAL, COMPL IMAGES COMPLETED DATE/TIME: 09/28/2020 9:02 am REASON FOR STUDY: R92.2 N63.11 UNSPECIFIED LUMP IN THE RIGHT BREAST, UPPER OUTER DU COMPARISON: Recent diagnostic mammography 09/10/2020. TECHNIQUE: Static and Realtime grayscale interrogation of the entire right breast(s) acquired. This includes the 10- 11 o'clock reportedly palpable abnormality. Selected color doppler/spectral images saved to PACS. LIMITATIONS: None. FINDINGS: Masses:No cystic or solid masses identified Architecture:No alteration of normal morphology. No skin thickening. No edema. Other: None. IMPRESSION: No suspicious findings detected by ultrasound. BIRAD: 1 Negative. RECOMMENDATION: RECOMMENDED FOLLOW-UP: Follow-up as clinically indicated. COMMENT: PATIENT NOTIFIED BY LETTER. [employer], [employer], and [employer] recommend an annual screening mammogram for women aged 40 years or over. Each patient will recei ve a reminder prior to the anniversary date of her mammogram. TECHNICAL DOCUMENTATION: FINDING NUMBER: (1) ASSESSMENT: (1) JOB ID: [id number] [employer]- All Rights Reserved Reading location - IP/workstation name: [email or web address]
== END ==
LOC: WI 08:40
PROVIDERS: ATTEND Surgery
DX: R92.2 Inconclusive mammogram (principal)
CPT/HCPCS: 76641

== ENCOUNTER 2020-10-28 14:19 | Emergency (ER) | payer OTHER, MEDICAID ==
[2020-10-28 14:24] VITALS: BP 163/96
[2020-10-28] MEDS ORDERED: ONDANSETRON 4 MG TAB.RAPDIS PO ONE (14:35)
[2020-10-28] MEDS ORDERED: HYDROCODONE/ACETAMINOPHEN 5-325 MG TABLET PO ONE (14:35)
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
--- NOTE | 2020-10-28 15:10 | RADIOLOGY REPORT (SQ) ---
EXAM DESCRIPTION: CT HEAD WITHOUT IMAGES COMPLETED DATE/TIME: 10/28/2020 11:55 am REASON FOR STUDY: head injury COMPARISON: None. TECHNIQUE: Axial images acquired through the brain without intravenous contrast. Images reviewed wi th bone, brain and subdural windows. Additional sagittal and coronal reconstructions were generated. Images stored on PACS. All CT scanners at this facility use dose modulation, iterative reconstruction, and/or weight based d osing when appropriate to reduce radiation dose to as low as reasonably achievable (ALARA). [facility]: Dose Right [facility]: CareDose [facility]: Dose Right [facility]: Teradose 4D [facility]: Smart [employer] RADIATION DOSE: CT Rad equipment meets quality standard of care and radiation dose reduction techniq ues were employed. CTDIvol: 53.2 mGy. DLP: 1017 mGy-cm. mGy. LIMITATIONS: None. FINDINGS: VENTRICLES: Normal size and contour. CEREBRUM: No masses. No hemorrhage. No midline shift. No evidence for acute infarction. Few scatte red areas of low density in the white matter are nonspecific but likely chronic small vessel ischemic changes. CEREBELLUM: No masses. No hemorrhage. No alteration of density. No evidence for acute infarction. EXTRAAXIAL SPACES: No fluid collections. No masses. ORBITS AND GLOBE: No intra- or extraconal masses. Normal contour of globe without masses. CALVARIUM: No fracture. PARANASAL SINUSES: No fluid or mucosal thickening. SOFT TISSUES: No mass or hematoma. OTHER: No other significant finding. IMPRESSION: No acute intracranial abnormality on noncontrast CT. EVIDENCE OF ACUTE STROKE: NO. COMMENT: Quality ID # [id number]: Final reports with documentation of one or more dose reduction techniques (e.g., Automated exposure control, adjustment of the mA and/or kV according to patient size, use of iterative reconstruction technique) TECHNICAL DOCUMENTATION: JOB ID: [id number] 2010 [employer]- All Rights Reserved Reading location - IP/workstation name: [email or web address]
--- NOTE | 2020-10-28 15:12 | RADIOLOGY REPORT (SQ) ---
EXAM DESCRIPTION: CT CERVICAL SPINE WITHOUT IMAGES COMPLETED DATE/TIME: 10/28/2020 11:55 am REASON FOR STUDY: head injury COMPARISON: None. TECHNIQUE: Axial images acquired through the cervical spine without intravenous contrast. Images re viewed with lung, soft tissue and bone windows. Reconstructed coronal and sagittal MPR images review ed. Images stored on PACS. All CT scanners at this facility use dose modulation, iterative reconstruction, and/or weight based d osing when appropriate to reduce radiation dose to as low as reasonably achievable (ALARA). [facility]: Dose Right [facility]: CareDose [facility]: Dose Right [facility]: Teradose 4D [facility]: Smart [employer] RADIATION DOSE: CT Rad equipment meets quality standard of care and radiation dose reduction techniq ues were employed. CTDIvol: 19.6 mGy. DLP: 386 mGy-cm. mGy. LIMITATIONS: None. FINDINGS: ALIGNMENT: Straightening of the cervical lordosis. No significant spondylolisthesis. MINERALIZATION: Normal. VERTEBRAL BODIES: No fractures or dislocation. DISCS: Some mild loss of intervertebral disc height most canal at C5-6 and C6-7. Mild anterior olu nal osteophytes at these levels. Posterior disc osteophyte complex and uncovertebral joint spurring with associated neural foraminal narrowing, most pronounced on the right at C5-6. FACETS, LATERAL MASSES, POSTERIOR ELEMENTS: No acute abnormality. Mild multilevel facet arthropathy. HARDWARE: None in the spine. VISUALIZED RIBS: No fractures. LUNG APICES AND SOFT TISSUES: Mild centrilobular emphysema and minimal apical scarring. OTHER: No other significant finding. IMPRESSION: 1. No CT evidence of acute fracture or subluxation of the cervical spine. 2. Straightening of the cervical lordosis may be positional or due to altered muscle tone. 3. Mild multilevel degenerative changes. TECHNICAL DOCUMENTATION: JOB ID: [id number] Quality ID # [id number]: Final reports with documentation of one or more dose reduction techniques (e.g., Au tomated exposure control, adjustment of the mA and/or kV according to patient size, use of iterative reconstruction technique) 2010 [employer]- All Rights Reserved Reading location - IP/workstation name: [email or web address]
[2020-10-28] MEDS ORDERED: CYCLOBENZAPRINE HCL 10 MG TABLET PO ONE (15:55)
== END 2020-10-28 16:06 | disposition home or self-care (01) ==
LOC: ER 14:19
DX: S09.90XA Unspecified injury of head, initial encounter (principal); M62.838 Other muscle spasm; M54.2 Cervicalgia; R51.9 Headache, unspecified; M54.6 Pain in thoracic spine; V89.2XXA Person injured in unspecified motor-vehicle accident, traffic, initial encounter; I48.91 Unspecified atrial fibrillation; E78.00 Pure hypercholesterolemia, unspecified
CPT/HCPCS: 99284; 70450; 72125; S0119